=== PATIENT | male | born 1955 | race African-American/Black ===

== ENCOUNTER 2020-07-08 11:01 | Inpatient (IN) | payer MEDICARE, MEDICAID ==
[~2020-07-08] VITALS: Ht 172.7 cm; Wt 94.4 kg
[~2020-07-08 11:01] MED LIST: ACETAMINOPHEN325 M1 ORAL; CYCLOBENZAPRINE10 MG ORAL; FLEET ENEMA133 ML RECTAL; FLOMAX0.4 MG ORAL; FLONASE ALLERG9.9 ML NS; GABAPENTIN600 MG ORAL; LATANOPROST 0.7.5 ML OP; MIRALAX17 G2 ORAL; TRAMADOL HCL50 MG ORAL; VITAMIN C500 M1 ORAL; ZINC50 M1 ORAL
--- NOTE | 2020-07-08 11:09 | NUR ---
ED Nurse Note: pt was [place] [facility] [place] pressure sore started this monday. Per EMS pt's (-) for DM. Pt is AOx4m calm and cooperative to care, VSS, on RA, breathing even and unlabored. afebrile on triage.
--- NOTE | 2020-07-08 11:32 | NUR ---
ED Nurse Note: xray at bedside
[2020-07-08 11:38] VITALS: BP 111/71
[2020-07-08 11:50] LABS: ANION GAP 8 mmol/L (5-15); BLOOD UREA NITROGEN 17 mg/dL (7-18); CALCIUM 8.8 MG/DL (8.5-10.1); CARBON DIOXIDE 24 MMOL/L (21-32); CHLORIDE 104 MMOL/L (98-107); POTASSIUM 4.3 MMOL/L (3.5-5.1); SODIUM 136 MMOL/L (136-145)
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
[2020-07-08 12:23] LABS: BASOPHILS % (AUTO) 0.8 % (0.0-2.0); EOSINOPHILS % (AUTO) 2.4 % (0.0-3.0); HEMOGLOBIN 12.6 G/DL (14.2-18.0); MEAN CORPUSCULAR VOLUME 72 FL (80-99); MONOCYTES % (AUTO) 8.1 % (1.0-10.0); NEUTROPHILS % (AUTO) 65.7 % (45.0-75.0); PLATELET COUNT 407 K/UL (150-450); RED BLOOD COUNT 5.53 M/UL (4.70-6.10); RED CELL DISTRIBUTION WIDTH 13.2 % (11.6-14.8); WHITE BLOOD COUNT 7.9 K/UL (4.8-10.8)
[2020-07-08] MEDS ORDERED: Vancomycin 1 GM in NS 275 ML IVPB ONE (12:30)
[2020-07-08] MEDS ORDERED: cefTRIAXone 2 GM in NS 55 ML IVPB ONE (12:30)
--- NOTE | 2020-07-08 12:35 | Diagnostic Imaging Report ---
EXAM: X-RAY XRAY Ankle 2v R CLINICAL HISTORY: Ankle pain. Open sore. COMPARISON: None FINDINGS: Total of 2 views of the right ankle were obtained. There is diffuse osteopenia. There is a well-corticated ossific fragment inferior to the lateral malleolus likely an old injury. No acute bony lesion or erosion noted. Ankle mortise and subtalar joints grossly anatomic on these projections. There is overlying soft tissue swelling. IMPRESSION: DIFFUSE OSTEOPENIA AND APPARENT OLD INJURY OF THE LATERAL MALLEOLUS. NO DISCRETE RADIOGRAPHIC EVIDENCE OF OSTEOMYELITIS PRESENTLY.
--- NOTE | 2020-07-08 14:02 | NUR ---
ED Nurse Note: Dr Fulton at bedside
--- NOTE | 2020-07-08 14:44 | NUR ---
ED Nurse Note: Dr. Waterman, internal med physician at pt's bedside.
[2020-07-08 14:50] VITALS: BP 118/89
--- NOTE | 2020-07-08 14:50 | NUR ---
ED Nurse Note: wound culture collected
[2020-07-08] MEDS ORDERED: Albuterol/Ipratropium 3ml neb HHN PRN (15:00)
[2020-07-08] MEDS ORDERED: Miralax 17gm pkt ORAL PRN (15:00)
[2020-07-08] MEDS ORDERED: Mylanta II UD 30ml ORAL PRN (15:00)
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
[2020-07-08] MEDS ORDERED: HYDROcodone/Acetamin 10/325 tab ORAL PRN (15:45)
[2020-07-08] MEDS ORDERED: HYDROcodone/Acetamin 5/325 tab ORAL PRN (15:45)
--- NOTE | 2020-07-08 17:20 | NUR ---
ED Nurse Note: Report was given to Dustin HINSON in Telemetry Unit. Pt was transferredon stable condition; all belonginsgwas sent with pt.
--- NOTE | 2020-07-08 17:25 | Infectious Diseases Prog Note ---
Assessment/Plan Assessment/Plan Full consult dictated: A) 1) right ankle infected wound with cellulitis, ? osteomyelitis 2) pmh noted 3) allergies - nkda P) 1) vancomycin and cefepime 2) check wound culture 3) monitor labs 4) f/u on CT ankle 5) thank you Subjective Allergies: Coded Allergies: No Known Allergies (Unverified , 05/25/20) Objective Last 24 Hour Vital Signs Date Time Temp Pulse Resp B/P (MAP) Pulse Ox O2 Delivery O2 Flow Rate FiO2 07/08/20 11:38 98.2 19 111/71 94 Room Air 07/08/20 11:02 98.2 84 19 111/71 (84) 94 Room Air Height (Feet): 5 Height (Inches): 8.00 Weight (Pounds): 192 Microbiology Date/Time Source Procedure Growth Status 07/08/20 14:30 Rectum Received 07/08/20 14:23 Nasopharynx SARS-CoV-2 RdRp Gene Assay - Final Complete Laboratory Tests Test 07/08/20 11:25 07/08/20 11:50 Erythrocyte Sedimentation Rate 8 MM/HR (0-20) Sodium Level 136 MMOL/L (136-145) Potassium Level 4.3 MMOL/L (3.5-5.1) Chloride Level 104 MMOL/L (98-107) Carbon Dioxide Level 24 MMOL/L (21-32) Anion Gap 8 mmol/L (5-15) Blood Urea Nitrogen 17 mg/dL (7-18) Creatinine 1.0 MG/DL (0.55-1.30) Estimat Glomerular Filtration Rate > 60 mL/min (>60) Glucose Level 106 MG/DL (74-106) Calcium Level 8.8 MG/DL (8.5-10.1) C-Reactive Protein, Quantitative 3.8 mg/dL (0.00-0.90) H White Blood Count 7.9 K/UL (4.8-10.8) Red Blood Count 5.53 M/UL (4.70-6.10) Hemoglobin 12.6 G/DL (14.2-18.0) L Hematocrit 40.0 % (42.0-52.0) L Mean Corpuscular Volume 72 FL (80-99) L Mean Corpuscular Hemoglobin 22.8 PG (27.0-31.0) L Mean Corpuscular Hemoglobin Concent 31.5 G/DL (32.0-36.0) L Red Cell Distribution Width 13.2 % (11.6-14.8) Platelet Count 407 K/UL (150-450) Mean Platelet Volume 5.9 FL (6.5-10.1) L Neutrophils (%) (Auto) 65.7 % (45.0-75.0) Lymphocytes (%) (Auto) 23.0 % (20.0-45.0) Monocytes (%) (Auto) 8.1 % (1.0-10.0) Eosinophils (%) (Auto) 2.4 % (0.0-3.0) Basophils (%) (Auto) 0.8 % (0.0-2.0) Current Medications Medications (Trade) Dose Ordered Sig/Hector Route PRN Reason Start Time Stop Time Status Last Admin Dose Admin Acetaminophen (Tylenol) 650 mg Q4H PRN ORAL Mild Pain (Pain Scale 1-3) 07/08/20 15:00 08/07/20 14:59 Acetaminophen/ Hydrocodone Bitart (Moore 10/325) 1 tab Q4H PRN ORAL Severe Pain (Pain Scale 7-10) 07/08/20 15:45 07/15/20 15:44 Acetaminophen/ Hydrocodone Bitart (Moore 5/325) 1 tab Q4H PRN ORAL Moderate Pain (Pain Scale 4-6) 07/08/20 15:45 07/15/20 15:44 Al Hydroxide/Mg Hydroxide (Mylanta II) 30 ml Q6H PRN ORAL dyspepsia 07/08/20 15:00 08/07/20 14:59 Albuterol/ Ipratropium (Albuterol/ Ipratropium) 3 ml Q4H PRN HHN Shortness of Breath 07/08/20 15:00 07/13/20 14:59 Ceftriaxone Sodium 1 gm/ Sodium Chloride 55 ml @ 110 mls/hr DAILY IVPB 07/09/20 09:00 07/16/20 08:59 Cyclobenzaprine HCl (Flexeril) 10 mg THREE TIMES A DAY ORAL 07/08/20 18:00 07/15/20 17:59 Dextrose (Dextrose 50%) 25 ml Q30M PRN IV Hypoglycemia 07/08/20 15:00 10/06/20 14:59 Dextrose (Dextrose 50%) 50 ml Q30M PRN IV Hypoglycemia 07/08/20 15:00 10/06/20 14:59 Enoxaparin Sodium (Lovenox) 40 mg Q24H SUBQ 07/08/20 18:00 10/06/20 17:59 Gabapentin (Neurontin) 600 mg THREE TIMES A DAY ORAL 07/08/20 18:00 08/07/20 17:59 Ondansetron HCl (Zofran) 4 mg Q6H PRN IVP Nausea & Vomiting 07/08/20 15:00 08/07/20 14:59 Polyethylene Glycol (Miralax) 17 gm HSPRN PRN ORAL Constipation 07/08/20 15:00 08/07/20 14:59 Sodium Chloride 1,000 ml @ 100 mls/hr Q10H IVLG 07/08/20 18:00 08/07/20 17:59 Vancomycin HCl (Vanco pharmacy to dose) 1 ea DAILY PRN MISC Per rx protocol 07/08/20 15:15 08/07/20 15:14 Juan Hubbard MD Jul 08, 2020 17:25
--- NOTE | 2020-07-08 17:30 | NUR ---
NURSE NOTES: received patient report from jennifer villa from ER. patient came in via gurney.patient is here for R ankle wound infection. wound swab was sent for cx. under the care of dr goel. athletic monitor initiated. vs taken and recorded. wound assessment done. wound seen by dr agrawal in ER. belongings checked and signed. will follow plan of care.
[2020-07-08 17:37] VITALS: BP 127/80
[2020-07-08] MEDS: Cyclobenzaprine 10mg Tab ORAL SCH (18:33)
[2020-07-08] MEDS: Enoxaparin 40mg Inj SUBQ SCH (18:34)
--- NOTE | 2020-07-08 19:01 | General Progress Note ---
Advance Care Planning Advance Care Planning Advance Care Planning [facility] An independent Hospitalist group, where every patient is our [facility] Internal Medicine Hospitalist Advanced Care Planning Note Please contact us at Date of Discussion: A [id number] discussion with the patient regarding the patient's advanced care planning took place during this hospitalization on the above date. The discussion included the explanation and discussion of advance directives and associated forms/documents, as well as the patient's current code status. We also discussed at length the patient's medical conditions (both acute and chroni c), general prognosis, treatment options, and goals of care. The following summarizes the discussion: Advance Care Planning/Goals of Care: - Will attempt to fill out an AD and/or POLST with the patient prior to discharge, if not already completed - Continue current evaluation and management of any acute and chronic medical issues - Will continue to support the patient/family - Will continue to discuss both short- and long-term goals of care DPOA-HC/Surrogate Decision Maker: None currently appointed Code Status: DNI; ok with CPR and pressor support Advanced Care Planning Forms/Documents Completed: Deferred until later encounter/visit A total of 19 minutes was spent on this discussion, including counseling, answering questions, and completing, if any, pertinent advanced care planning forms/documents. Time of note may not reflect time of encounter. Miguelangel Waterman D.O Jul 08, 2020 19:01
--- NOTE | 2020-07-08 19:22 | NUR ---
NURSE HAND-OFF REPORT: Important Events on Shift:admitted to the floor Patient Status: dni Diet: regular Pending Orders: [] Pending Results/Labs:[] Pending MD notification:[] Latest Vital Signs: Temperature 96.4 , Pulse 92 , B/P 127 /80 , Respiratory Rate 20 , O2 SAT 96 , Room Air, O2 Flow Rate . Vital Sign Comment: stable EKG Rhythm: Sinus Rhythm Rhythm change?: MD Notified?: - MD Response: Latest Liu Fall Score: 55 Fall Risk: High Risk Safety Measures: Call light Within Reach, Bed Alarm Zone 2, Side Rails Side Rails x2, Bed position Low and Locked. Fall Precautions: Yellow Socks Report given to beatrice villa.
--- NOTE | 2020-07-08 19:35 | NUR ---
NURSE NOTES: Received patient from JOYA Longoria. Patient AAOx4, able to make needs known. On room air, saturating well. Breathing unlabored and even. IV site on RH #22g, running NS at 100ml/hr. IV site flushed and asymptomatic. with complaints of minimal pain but no necessitating pain medication at this time, per patient. No signs of acute distress or shortness of breath. Noted to have right ankle infection. Bed in lowest position, brakes engaged and bed alarm on. Bed rails raised x2. Will continue to monitor.
[2020-07-08 20:00] VITALS: BP 119/77
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
[2020-07-09] VITALS: BP 115/78
--- NOTE | 2020-07-09 02:36 | NUR ---
NURSE NOTES: pt seen asleep and resting in bed. no complaints of pain or discomfort at this time. ivf running at a prescribed rate. bed in lowest position, brakes engaged and bed alarm on. call light placed within reach. will continue to monitor.
[2020-07-09 04:00] VITALS: BP 112/60
[2020-07-09 06:28] LABS: BASOPHILS % (AUTO) 0.5 % (0.0-2.0); EOSINOPHILS % (AUTO) 2.8 % (0.0-3.0); HEMATOCRIT 40.3 % (42.0-52.0); HEMOGLOBIN 12.8 G/DL (14.2-18.0); LYMPHOCYTES % (AUTO) 25.1 % (20.0-45.0); MEAN CORPUSCULAR VOLUME 71 FL (80-99); MONOCYTES % (AUTO) 6.4 % (1.0-10.0); NEUTROPHILS % (AUTO) 65.1 % (45.0-75.0); PLATELET COUNT 427 K/UL (150-450); RED BLOOD COUNT 5.66 M/UL (4.70-6.10); RED CELL DISTRIBUTION WIDTH 13.4 % (11.6-14.8); WHITE BLOOD COUNT 8.4 K/UL (4.8-10.8)
[2020-07-09 06:45] LABS: ANION GAP 8 mmol/L (5-15); BLOOD UREA NITROGEN 13 mg/dL (7-18); CALCIUM 8.4 MG/DL (8.5-10.1); CARBON DIOXIDE 24 MMOL/L (21-32); CHLORIDE 106 MMOL/L (98-107); POTASSIUM 3.6 MMOL/L (3.5-5.1); SODIUM 138 MMOL/L (136-145)
[2020-07-09 07:00] LABS: % IRON SATURATION 17 % (15-50); ALANINE AMINOTRANSFERASE 16 U/L (12-78); ALBUMIN 2.7 G/DL (3.4-5.0); ALBUMIN/GLOBULIN RATIO 0.8 (1.0-2.7); ALKALINE PHOSPHATASE 176 U/L (46-116); ASPARTATE AMINO TRANSFERASE 14 U/L (15-37); BILIRUBIN,TOTAL 0.1 MG/DL (0.2-1.0); CHOLESTEROL 167 MG/DL (< 200); FERRITIN 281 NG/ML (8-388); HDL CHOLESTEROL 29 MG/DL (40-60); IRON 36 ug/dL (50-175); TOTAL IRON BINDING CAPACITY 207 ug/dL (250-450); TRIGLYCERIDES 167 MG/DL (30-150)
--- NOTE | 2020-07-09 07:30 | NUR ---
NURSE NOTES: Received patient in bed. Awake, A/O x4. On room air, respirations unlabored. Patietn denies pain at this time. Heart monitor in place. IV in the Right hand, site infusing IVf as ordered. Patient is a high fall risk d/t Liu fall score of 55. Patient placed close to the nurse's station for safety and close monitoring. Yellow gown on, yellow socks on, bed alarm in high sensitivity, side rails up x2, bed at the lowest position, call light within reach with return demonstration. Cn and [employer] made aware.
--- NOTE | 2020-07-09 07:36 | NUR ---
NURSE HAND-OFF REPORT: Important Events on Shift:[New admit.] Patient Status: [FC] Diet: [Regular diet] Pending Orders: [na] Pending Results/Labs:[na] Pending MD notification:[na] Latest Vital Signs: Temperature 98.4 , Pulse 87 , B/P 112 /60 , Respiratory Rate 18 , O2 SAT 95 , Room Air, O2 Flow Rate . Vital Sign Comment: [] EKG Rhythm: Sinus Rhythm Rhythm change?: N MD Notified?: - MD Response: Latest Liu Fall Score: 55 Fall Risk: High Risk Safety Measures: Call light Within Reach, Bed Alarm Zone 1, Side Rails Side Rails x2, Bed position Low and Locked. Fall Precautions: Yellow Socks Yellow Gown Door Sign Patient Fall Education Report given to [JOYA Alfonso].
[2020-07-09 08:00] VITALS: BP 109/72
[2020-07-09] MEDS ORDERED: cefTRIAXone 1 GM in NS 55 ML IVPB SCH (09:00)
[2020-07-09] MEDS: Cyclobenzaprine 10mg Tab ORAL SCH ×3 (09:12→18:01)
--- NOTE | 2020-07-09 09:58 | NUR ---
NURSE NOTES: Called and left message to Dr. Dong office for blood culture result.
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
[2020-07-09 12:00] VITALS: BP 126/75
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
--- NOTE | 2020-07-09 14:35 | NUR ---
HAND-OFF: Report given to Kishor HINSON. To room 410-2. Patient awake, A/O x4. On room air, respirations unlabored. Patient denies pain. Heart monitor removed. Belongings list verified.
--- NOTE | 2020-07-09 15:18 | Diagnostic Imaging Report ---
Indication: Ankle pain, concern for osteomyelitis. Technique: CT lower extremity was performed utilizing automated exposure control without intravenous contrast material. Axial and coronal images were generated. CT dose: Total DLP 116 mGycm; CTDI vol 2.3 mGy Comparison: Ankle radiograph dated 07/08/2020 Findings: Osseous structures: Bones are diffusely demineralized. No acute fracture or dislocation. There is cortical discontinuity and medullary erosion of the distal fibula (9:63). Talar dome is unremarkable. There is diffuse irregular sclerosis of the tarsal bones, talus, and calcaneus, which may be related to renal osteodystrophy. There is mild to moderate multifocal intertarsal joint and tibiotalar joint, and subtalar joint osteoarthrosis characterized by subchondral sclerosis and cystic changes as well as marginal osteophyte formation. Soft tissues: There is epidermal irregularity and discontinuity overlying the distal fibula with subjacent soft tissue thickening and inflammatory changes. There is mild anasarca. No drainable fluid collection. Impression: Lateral malleolus skin ulceration and associated cellulitis with underlying cortical erosion of the distal fibula suggestive of acute osteomyelitis. The CT scanner at [facility] is accredited by the [employer] and the scans are performed using protocols designed to limit radiation exposure to as low as reasonably achievable to attain images of sufficient resolution adequate for diagnostic evaluation.
[2020-07-09 16:00] VITALS: BP 103/58
--- NOTE | 2020-07-09 17:35 | NUR ---
NURSE NOTES: Received report from JOYA Alfonso. Received patient in bed. Awake, A/O x4. On room air, respirations unlabored. Patient denies pain at this time. Skin issue noted and Rn took picture and uploaded as well as changed dressings. Breathing is even and unlabored with no signs of respiratory distress noted at this time IV in the Right hand, site infusing IVf as ordered. patient is paraplegic from waist down, high fall risk. Yellow gown on, yellow socks on, bed alarm in high sensitivity, side rails up x2, bed at the lowest position, call light within reach with return demonstration.
[2020-07-09] MEDS: Enoxaparin 40mg Inj SUBQ SCH (18:01)
--- NOTE | 2020-07-09 18:49 | Consultation ---
History of Present Illness General Date patient seen: Jul 09, 2020 Reason for Hospitalization: Wound Recheck/Suture Removal Present Illness HPI 64M with right foot cellulitis and open wound ulcer lateral. prior injury with slow healing. recently noted worsening edema and cellulitis with drainage. admitted for care and management. on iv abx. surgery called to evaluate and assist with care. Allergies: Coded Allergies: No Known Allergies (Unverified , 05/25/20) COVID-19 Screening Contact w/high risk pt: No Experienced COVID-19 symptoms?: No Medication History Scheduled Ascorbic Acid* (Vitamin C*), 500 MG ORAL DAILY, (Reported) Cyclobenzaprine Hcl* (Flexeril*), 10 MG ORAL THREE TIMES A DAY, (Reported) Gabapentin* (Gabapentin*), 600 MG ORAL THREE TIMES A DAY, (Reported) Polyethylene Glycol 3350* (Miralax*), 17 GM ORAL DAILY Tamsulosin HCl (Flomax), 0.4 MG ORAL DAILY, (Reported) Tramadol Hcl* (Ultram*), 50 MG ORAL BID, (Reported) Scheduled PRN Acetaminophen* (Acetaminophen 325MG Tablet*), 650 MG ORAL Q4H PRN for Pain Scale (3-5), (Reported) Na Phos,M-B/Na Phos,Di-Ba* (Fleet Enema*), 133 ML RECTAL DAILY PRN for Constipation Miscellaneous Medications Fluticasone Propionate (Flonase Allergy Relief), 9.9 ML NS, (Reported) Latanoprost/Pf (Latanoprost 0.005% Eye Drop), 7.5 ML OP, (Reported) Zinc (Zinc), 50 MG ORAL, (Reported) Patient History History Provided By: Patient, Medical Record, PMD Healthcare decision maker Resuscitation status Advanced Directive on File Past Medical/Surgical History Past Medical/Surgical History: (1) Constipation (2) Fecal impaction (3) Cellulitis (4) Infection Review of Systems Review of Symptoms General ROS: no weight loss or fever Psychological ROS: no depression or mood changes, no memory loss Ophthalmic ROS: no visual changes or eye irritation ENT ROS: no nasal congestion, hearing loss, dizziness Allergy and Immunology ROS: no allergic symptoms or urticaria Hematological and Lymphatic ROS: no swollen glands, unusual bleeding or bruising Endocrine ROS: no polyuria, polydipsia, weight changes, temperature intolerance Respiratory ROS: no cough, shortness of breath, or wheezing Cardiovascular ROS: no chest pain or dyspnea on exertion Gastrointestinal ROS: denies abdominal pain, bright red blood in stool. Musculoskeletal ROS: no myalgias or arthralgias Neurological ROS: no TIA or stroke symptoms Dermatological ROS: no new or changing skin lesions, rashes or pruritis Physical Exam Physical Exam General appearance: alert, cooperative, no distress, appears stated age Head: Normocephalic, without obvious abnormality, atraumatic Eyes: conjunctivae/corneas clear. PERRL, EOM's intact. Fundi benign Throat: Lips, mucosa, and tongue normal. Teeth and gums normal Neck: supple, symmetrical, trachea midline, no adenopathy, thyroid: not enlarged, symmetric, no tenderness/mass/nodules, no carotid bruit and no JVD Lungs: clear to auscultation bilaterally Heart: regular rate and rhythm, S1, S2 normal, no murmur, click, rub or gallop Abdomen: soft, non-tender. Bowel sounds normal. No masses, no organomegaly Extremities: extremities see below Pulses: 2+ and symmetric Skin: Skin color, texture, turgor normal. No rashes or lesions Neurologic: Grossly normal Last 24 Hour Vital Signs Date Time Temp Pulse Resp B/P (MAP) Pulse Ox O2 Delivery O2 Flow Rate FiO2 07/09/20 16:00 87 07/09/20 16:00 98.1 81 20 103/58 (73) 96 07/09/20 12:00 95 07/09/20 12:00 96.7 90 19 126/75 (92) 98 07/09/20 09:00 Room Air 07/09/20 08:00 87 07/09/20 08:00 98.1 92 20 109/72 (84) 96 07/09/20 04:00 98.4 87 18 112/60 (77) 95 07/09/20 04:00 91 07/09/20 00:00 97.1 95 20 115/78 (90) 97 07/09/20 00:00 87 07/08/20 21:00 Room Air 07/08/20 20:00 92 07/08/20 20:00 96.6 91 20 119/77 (91) 95 Intake and Output 07/08/20 07/09/20 19:00 07:00 Intake Total 46.4 ml 1750.000 ml Balance 46.4 ml 1750.000 ml Intake Oral 0 ml 120 ml IV Total 46.4 ml 1630.000 ml # Voids 1 1 # Bowel Movements 1 1 Laboratory Tests Test 07/09/20 04:47 White Blood Count 8.4 K/UL (4.8-10.8) Red Blood Count 5.66 M/UL (4.70-6.10) Hemoglobin 12.8 G/DL (14.2-18.0) L Hematocrit 40.3 % (42.0-52.0) L Mean Corpuscular Volume 71 FL (80-99) L Mean Corpuscular Hemoglobin 22.6 PG (27.0-31.0) L Mean Corpuscular Hemoglobin Concent 31.7 G/DL (32.0-36.0) L Red Cell Distribution Width 13.4 % (11.6-14.8) Platelet Count 427 K/UL (150-450) Mean Platelet Volume 6.5 FL (6.5-10.1) Neutrophils (%) (Auto) 65.1 % (45.0-75.0) Lymphocytes (%) (Auto) 25.1 % (20.0-45.0) Monocytes (%) (Auto) 6.4 % (1.0-10.0) Eosinophils (%) (Auto) 2.8 % (0.0-3.0) Basophils (%) (Auto) 0.5 % (0.0-2.0) Sodium Level 138 MMOL/L (136-145) Potassium Level 3.6 MMOL/L (3.5-5.1) Chloride Level 106 MMOL/L (98-107) Carbon Dioxide Level 24 MMOL/L (21-32) Anion Gap 8 mmol/L (5-15) Blood Urea Nitrogen 13 mg/dL (7-18) Creatinine 1.0 MG/DL (0.55-1.30) Estimat Glomerular Filtration Rate > 60 mL/min (>60) Glucose Level 99 MG/DL (74-106) Hemoglobin A1c 6.3 % (4.3-6.0) H Calcium Level 8.4 MG/DL (8.5-10.1) L Iron Level 36 ug/dL (50-175) L Total Iron Binding Capacity 207 ug/dL (250-450) L Percent Iron Saturation 17 % (15-50) Unsaturated Iron Binding 171 ug/dL (112-346) Ferritin 281 NG/ML (8-388) Total Bilirubin 0.1 MG/DL (0.2-1.0) L Aspartate Amino Transf (AST/SGOT) 14 U/L (15-37) L Alanine Aminotransferase (ALT/SGPT) 16 U/L (12-78) Alkaline Phosphatase 176 U/L (46-116) H C-Reactive Protein, Quantitative 3.8 mg/dL (0.00-0.90) H Total Protein 6.3 G/DL (6.4-8.2) L Albumin 2.7 G/DL (3.4-5.0) L Globulin 3.6 g/dL Albumin/Globulin Ratio 0.8 (1.0-2.7) L Triglycerides Level 167 MG/DL (30-150) H Cholesterol Level 167 MG/DL (< 200) LDL Cholesterol 106 mg/dL (<100) H HDL Cholesterol 29 MG/DL (40-60) L Cholesterol/HDL Ratio 5.8 (3.3-4.4) H Height (Feet): 5 Height (Inches): 8.00 Weight (Pounds): 192 Medications Current Medications Medications (Trade) Dose Ordered Sig/Hector Route PRN Reason Start Time Stop Time Status Last Admin Dose Admin Acetaminophen (Tylenol) 650 mg Q4H PRN ORAL Mild Pain (Pain Scale 1-3) 07/08/20 15:00 08/07/20 14:59 07/08/20 18:43 Acetaminophen/ Hydrocodone Bitart (Brilliant 10/325) 1 tab Q4H PRN ORAL Severe Pain (Pain Scale 7-10) 07/08/20 15:45 07/15/20 15:44 Acetaminophen/ Hydrocodone Bitart (Brilliant 5/325) 1 tab Q4H PRN ORAL Moderate Pain (Pain Scale 4-6) 07/08/20 15:45 07/15/20 15:44 Al Hydroxide/Mg Hydroxide (Mylanta II) 30 ml Q6H PRN ORAL dyspepsia 07/08/20 15:00 08/07/20 14:59 Albuterol/ Ipratropium (Albuterol/ Ipratropium) 3 ml Q4H PRN HHN Shortness of Breath 07/08/20 15:00 07/13/20 14:59 Cefepime HCl 2 gm/ Dextrose 100 ml @ 200 mls/hr Q12HR IVPB 07/08/20 21:00 07/15/20 20:59 07/09/20 09:12 Cyclobenzaprine HCl (Flexeril) 10 mg THREE TIMES A DAY ORAL 07/08/20 18:00 07/15/20 17:59 07/09/20 18:01 Dextrose (Dextrose 50%) 25 ml Q30M PRN IV Hypoglycemia 07/08/20 15:00 10/06/20 14:59 Dextrose (Dextrose 50%) 50 ml Q30M PRN IV Hypoglycemia 07/08/20 15:00 10/06/20 14:59 Enoxaparin Sodium (Lovenox) 40 mg Q24H SUBQ 07/08/20 18:00 10/06/20 17:59 07/09/20 18:01 Gabapentin (Neurontin) 600 mg THREE TIMES A DAY ORAL 07/08/20 18:00 08/07/20 17:59 07/09/20 18:01 Ondansetron HCl (Zofran) 4 mg Q6H PRN IVP Nausea & Vomiting 07/08/20 15:00 08/07/20 14:59 Polyethylene Glycol (Miralax) 17 gm HSPRN PRN ORAL Constipation 07/08/20 15:00 08/07/20 14:59 Sodium Chloride 1,000 ml @ 75 mls/hr [id number] IVLG 07/08/20 18:00 07/10/20 04:29 07/09/20 15:13 Vancomycin HCl (Vanco pharmacy to dose) 1 ea DAILY PRN MISC Per rx protocol 07/08/20 15:15 08/07/20 15:14 Vancomycin HCl 1 gm/Sodium Chloride 250 ml @ 167.007 mls/hr Q12HR@0100,1300 IVPB 07/09/20 01:00 07/14/20 00:59 07/09/20 12:25 Assessment/Plan Problem List: (1) Cellulitis Assessment & Plan: cont abx local care initiated keep legs elevated heel protectors cont iv abx no abscess noted on exam thank you will follow with recs Osseous structures: Bones are diffusely demineralized. No acute fracture or dislocation. There is cortical discontinuity and medullary erosion of the distal fibula (9:63). Talar dome is unremarkable. There is diffuse irregular sclerosis of the tarsal bones, talus, and calcaneus, which may be related to renal osteodystrophy. There is mild to moderate multifocal intertarsal joint and tibiotalar joint, and subtalar joint os teoarthrosis characterized by subchondral sclerosis and cystic changes as well as marginal osteophyte formation. Soft tissues: There is epidermal irregularity and discontinuity overlying the distal fibula with subjacent soft tissue thickening and inflammatory changes. There is mild anasarca. No drainable fluid collection. Impression: Lateral malleolus skin ulceration and associated cellulitis with underlying cortical erosion of the distal fibula suggestive of acute osteomyelitis. ICD Codes: L03.90 - Cellulitis, unspecified SNOMED: 454843682 (2) Constipation ICD Codes: K59.00 - Constipation, unspecified SNOMED: 21963615 (3) Fecal impaction ICD Codes: K56.41 - Fecal impaction SNOMED: 49489471 (4) Infection ICD Codes: B99.9 - Infection SNOMED: 26115270 Luis Fulton Jul 09, 2020 18:49
--- NOTE | 2020-07-09 19:32 | NUR ---
NURSE HAND-OFF: Important Events on Shift: transfer, wound care and pictures Patient Status: stable Diet: regular Pending Orders: n/a Pending Results/Labs:n/a Pending MD notification:n/a Latest Vital Signs: Temperature 98.1 , Pulse 87 , B/P 103 /58 , Respiratory Rate 20 , O2 SAT 96 , Room Air, O2 Flow Rate . Vital Sign Comment: stable Latest Liu Fall Score: 55 Fall Risk: High Risk Safety Measures: Call light Within Reach, Bed Alarm Zone 1, Side Rails Side Rails x2, Bed position Low and Locked. Fall Precautions: Yellow Socks Yellow Gown Door Sign Patient Fall Education Report given to JOYA Up.
--- NOTE | 2020-07-09 19:40 | NUR ---
NURSE NOTES: Received report from Kishor RN.The patient is alert and oriented x4, cooperative with his care and does not seem to be in any distress at this time. The Resp is even and unlabored and the bilateral lung sounds are clear on auscultation.The patient has a Right hand 22g that is patent and asymptomatic.On skin assessment, the is a Right lateral malleolus sore that is covered with clean dressing, no bleeding noted. patient is paraplegic from waist down, high fall risk. Yellow gown on, yellow socks on, bed alarm in high sensitivity, side rails up x2, bed at the lowest position, call light within reach.Will continue to monitor
[2020-07-09 20:00] VITALS: BP 119/64
[2020-07-10] VITALS: BP 133/79
--- NOTE | 2020-07-10 02:30 | NUR ---
NURSE NOTES The patient is alert and stable and was able to sleep for about 8 hrs last night.He received his antibiotics as indicated well tolerated.The Resp is even and unlabored and the bilateral lungs sound clear on auscultation. Will continue to monitor
[2020-07-10] MEDS: Vancomycin 1.5gm/NS Premix IVPB SCH ×2 (02:59→13:20)
[2020-07-10 04:00] VITALS: BP 124/76
[2020-07-10 06:55] LABS: BASOPHILS % (AUTO) 0.5 % (0.0-2.0); EOSINOPHILS % (AUTO) 2.5 % (0.0-3.0); HEMATOCRIT 42.5 % (42.0-52.0); HEMOGLOBIN 12.7 G/DL (14.2-18.0); LYMPHOCYTES % (AUTO) 29.7 % (20.0-45.0); MEAN CORPUSCULAR VOLUME 73 FL (80-99); MONOCYTES % (AUTO) 7.8 % (1.0-10.0); NEUTROPHILS % (AUTO) 59.5 % (45.0-75.0); PLATELET COUNT 438 K/UL (150-450); RED BLOOD COUNT 5.79 M/UL (4.70-6.10); RED CELL DISTRIBUTION WIDTH 13.1 % (11.6-14.8); WHITE BLOOD COUNT 7.5 K/UL (4.8-10.8)
[2020-07-10 07:06] LABS: ANION GAP 9 mmol/L (5-15); BLOOD UREA NITROGEN 12 mg/dL (7-18); CALCIUM 8.6 MG/DL (8.5-10.1); CARBON DIOXIDE 25 MMOL/L (21-32); CHLORIDE 108 MMOL/L (98-107); CREATININE 1.1 MG/DL (0.55-1.30); POTASSIUM 4.3 MMOL/L (3.5-5.1); SODIUM 142 MMOL/L (136-145)
--- NOTE | 2020-07-10 07:38 | NUR ---
HAND-OFF: Report given to Lizzie HINSON.
[2020-07-10 08:00] VITALS: BP 126/76
--- NOTE | 2020-07-10 08:11 | NUR ---
NURSE NOTES: Report received from JOYA Up. Patient awake in bed, alert and oriented x 4, no SOB, bed in lowest position with breaks engaged and alarm on, denies any pain at this time, IV line intact on right hand, on room air, will continue to monitor and proceed with plan of care, call light within reach.
[2020-07-10] MEDS: Cyclobenzaprine 10mg Tab ORAL SCH ×3 (09:20→17:14)
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
--- NOTE | 2020-07-10 11:54 | Surgery Progress Note ---
Surgery Progress Note Subjective Additional Comments doing well esr and crp nml exam stable cellulitis improving unlikely osteo cont abx cont local care Objective Last 24 Hour Vital Signs Date Time Temp Pulse Resp B/P (MAP) Pulse Ox O2 Delivery O2 Flow Rate FiO2 07/10/20 10:04 98.1 07/10/20 09:00 Room Air 07/10/20 08:00 98.1 88 18 126/76 (93) 94 07/10/20 07:00 88 18 94 Room Air 21 07/10/20 04:00 98.4 92 18 124/76 (92) 97 07/10/20 00:00 97.5 81 18 133/79 (97) 95 07/09/20 21:00 Room Air 07/09/20 20:00 97.8 88 18 119/64 (82) 94 07/09/20 16:00 87 07/09/20 16:00 98.1 81 20 103/58 (73) 96 07/09/20 12:00 95 07/09/20 12:00 96.7 90 19 126/75 (92) 98 I&O Intake and Output 07/09/20 07/10/20 19:00 07:00 Intake Total 1000 ml 210 ml Output Total 200 ml 1800 ml Balance 800 ml -1590 ml Intake Oral 300 ml 210 ml IV Total 700 ml Output Urine Total 200 ml 1800 ml Dressing: saturated Cardiovascular: RSR Respiratory: clear Abdomen: soft, non-tender, non-distended Extremities: edema, no tenderness, no cyanosis Laboratory Tests Test 07/10/20 00:23 07/10/20 04:00 Vancomycin Level Trough 13.1 ug/mL (5.0-12.0) H White Blood Count 7.5 K/UL (4.8-10.8) Red Blood Count 5.79 M/UL (4.70-6.10) Hemoglobin 12.7 G/DL (14.2-18.0) L Hematocrit 42.5 % (42.0-52.0) Mean Corpuscular Volume 73 FL (80-99) L Mean Corpuscular Hemoglobin 22.0 PG (27.0-31.0) L Mean Corpuscular Hemoglobin Concent 30.0 G/DL (32.0-36.0) L Red Cell Distribution Width 13.1 % (11.6-14.8) Platelet Count 438 K/UL (150-450) Mean Platelet Volume 5.4 FL (6.5-10.1) L Neutrophils (%) (Auto) 59.5 % (45.0-75.0) Lymphocytes (%) (Auto) 29.7 % (20.0-45.0) Monocytes (%) (Auto) 7.8 % (1.0-10.0) Eosinophils (%) (Auto) 2.5 % (0.0-3.0) Basophils (%) (Auto) 0.5 % (0.0-2.0) Sodium Level 142 MMOL/L (136-145) Potassium Level 4.3 MMOL/L (3.5-5.1) Chloride Level 108 MMOL/L (98-107) H Carbon Dioxide Level 25 MMOL/L (21-32) Anion Gap 9 mmol/L (5-15) Blood Urea Nitrogen 12 mg/dL (7-18) Creatinine 1.1 MG/DL (0.55-1.30) Estimat Glomerular Filtration Rate > 60 mL/min (>60) Glucose Level 55 MG/DL (74-106) L Calcium Level 8.6 MG/DL (8.5-10.1) Phosphorus Level 3.0 MG/DL (2.5-4.9) Magnesium Level 2.2 MG/DL (1.8-2.4) Plan Problems: (1) Cellulitis Assessment & Plan: cont abx local care initiated keep legs elevated heel protectors cont iv abx no abscess noted on exam thank you will follow with recs Osseous structures: Bones are diffusely demineralized. No acute fracture or dislocation. There is cortical discontinuity and medullary erosion of the distal fibula (9:63). Talar dome is unremarkable. There is diffuse irregular sclerosis of the tarsal bones, talus, and calcaneus, which may be related to renal osteodystrophy. There is mild to moderate multifocal intertarsal joint and tibiotalar joint, and subtalar joint osteoarthrosis characterized by subchondral sclerosis and cystic changes as well as marginal osteophyte formation. Soft tissues: There is epidermal irregularity and discontinuity overlying the distal fibula with subjacent soft tissue thickening and inflammatory changes. There is mild anasarca. No drainable fluid collection. Impression: Lateral malleolus skin ulceration and associated cellulitis with underlying cortical erosion of the distal fibula suggestive of acute osteomyelitis. (2) Constipation (3) Fecal impaction (4) Infection Luis Fulton Jul 10, 2020 11:54
[2020-07-10 12:00] VITALS: BP 112/60
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
[2020-07-10 16:00] VITALS: BP 112/58
--- NOTE | 2020-07-10 16:26 | NUR ---
CASE MANAGEMENT:REVIEW SI;RLE CELLULITIS W/POSSIBLE OSTEOMYELITIS 98.4 88 20 126/76 94% ON RA CL 108 BG 55 IS;VANCOMYCIN IV Q8 GABAPENTIN PO TID FLEXERIL PO TID CEFEPIME IV Q12 MED SURG STATUS DCP;FROM HOME PLAN; SNF PLACEMENT
--- NOTE | 2020-07-10 16:55 | NUR ---
*-*DISCHARGE PLANNING*-* PATIENT HAS BEEN ACCEPTED BACK TO: [facility] P: [phone] ROOM# 10.A
[2020-07-10] MEDS: Enoxaparin 40mg Inj SUBQ SCH (17:15)
--- NOTE | 2020-07-10 17:18 | Diagnostic Imaging Report ---
EXAM: MR Right Lower Extremity Without Intravenous Contrast, Ankle CLINICAL HISTORY: Osteomyelitis TECHNIQUE: Multiplanar magnetic resonance images of the right ankle without intravenous contrast. COMPARISON: Radiographs of 07/08/[address] of 07/09/20 FINDINGS: As noted on CT, there is erosion of the inferolateral cortex of the distal right fibula/lateral malleolus. Extensive bone marrow edema involving the malleolus extending to the distal fibular shaft. While examination is limited without intravenous contrast, findings are concerning for osteomyelitis. Chronic avulsion injury noted with osseous fragment at the tip of the lateral malleolus. No acute fracture. IMPRESSION: Findings suggesting osteomyelitis of the distal right fibula/lateral malleolus.
--- NOTE | 2020-07-10 19:25 | NUR ---
NURSE NOTES: RECEIVED PATIENT FROM JOYA BERGMAN. PATIENT IS AWAKE, AAOX4, ON ROOM AIR, NO ACUTE DISTRESS NOTED. DENIES SOB, DENIES CHEST PAIN. PIV ON LEFT HAND INTACT AND PATENT. WOUND DRESSINGS INTACT AND DRY. CONDOM CATH IN PLACE, DRAINING WELL. BED IS LOCKED AND LOW, BED ALARMS ACTIVE, SIDE RAILS UPX2 AND CALL LIGHT IS WITHIN REACH, WILL CONTINUE TO MONITOR.
--- NOTE | 2020-07-10 19:34 | NUR ---
NURSE HAND-OFF: Important Events on Shift:[wound care, IV ATB, safety and comfort] Patient Status: [stable] Diet: [regular] Pending Orders: [] Pending Results/Labs:[] Pending MD notification:[] Latest Vital Signs: Temperature 98.1 , Pulse 81 , B/P 112 /58 , Respiratory Rate 20 , O2 SAT 96 , Room Air, O2 Flow Rate . Vital Sign Comment: [] Latest Liu Fall Score: 55 Fall Risk: High Risk Safety Measures: Call light Within Reach, Bed Alarm Zone 1, Side Rails Side Rails x2, Bed position Low and Locked. Fall Precautions: Yellow Socks Yellow Gown Door Sign Patient Fall Education Report given to [Yazmin, RN].
[2020-07-10 20:00] VITALS: BP 124/75
[2020-07-11] VITALS: BP 113/64
[2020-07-11] MEDS: Vancomycin 1.5gm/NS Premix IVPB SCH (03:13)
[2020-07-11 04:00] VITALS: BP 126/72
--- NOTE | 2020-07-11 07:44 | NUR ---
NURSE NOTES: Received pt from Yazmin, RN. pt was resting, no pain. or acute distress. call light w/in reach.
--- NOTE | 2020-07-11 07:49 | NUR ---
NURSE HAND-OFF: Important Events on Shift: NEW IV, CONTINUED WITH ANTIBIOTICS, WOUND CARE Patient Status: STABLE Diet: REGULAR Pending Orders: N/A Pending Results/Labs: CBC, BMP. MAG., PHOS, VT Pending MD notification: N/A Latest Vital Signs: Temperature 97.7 , Pulse 82 , B/P 126 /72 , Respiratory Rate 19 , O2 SAT 95 , Room Air, O2 Flow Rate . Vital Sign Comment: STABLE Latest Liu Fall Score: 55 Fall Risk: High Risk Safety Measures: Call light Within Reach, Bed Alarm Zone 1, Side Rails Side Rails x2, Bed position Low and Locked. Fall Precautions: Yellow Socks Yellow Gown Door Sign Patient Fall Education Report given to JOYA REINOSO.
[2020-07-11 08:00] VITALS: BP 135/58
[2020-07-11] MEDS: Cyclobenzaprine 10mg Tab ORAL SCH ×2 (08:51→12:58)
[2020-07-11 12:00] VITALS: BP 117/72
[2020-07-11] MEDS ORDERED: VANCOMYCIN1.5 GM/15 IV ×3 (13:19→15:13)
[2020-07-11] MEDS ORDERED: CEFEPIME 22 GM/100 M IV (13:19)
--- NOTE | 2020-07-11 13:22 | Discharge Instructions ---
Discharge Instructions Discharge Instructions Diet: regular Activity: resume normal activities Follow Up Orders Finish 6 week course of IV abx for osteomyelitis Wound care, daily dressing changes For Surgical Patients Dressing Care: keep dry and clean May shower: Yes For Congestive Heart Failure Reminder Report to your physician any weight gain of 5 pounds or more in one week. Miguelangel Waterman D.O Jul 11, 2020 13:22
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
[2020-07-11 13:49] LABS: ANION GAP 8 mmol/L (5-15); BLOOD UREA NITROGEN 10 mg/dL (7-18); CALCIUM 8.6 MG/DL (8.5-10.1); CARBON DIOXIDE 26 MMOL/L (21-32); CHLORIDE 106 MMOL/L (98-107); PHOSPHORUS 3.6 MG/DL (2.5-4.9); POTASSIUM 3.7 MMOL/L (3.5-5.1); SODIUM 140 MMOL/L (136-145)
--- NOTE | 2020-07-11 14:02 | NUR ---
DISCHARGE PLANNING NEWLY DIAGNOSED OSTEOMYELITIS. PATIENT REFUSED PICC LINE SPOKE WITH JESI AT [facility] WHO STATED THEY WILL ACCEPT PATIENT 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
--- NOTE | 2020-07-11 14:17 | Surgery Progress Note ---
Surgery Progress Note Subjective Additional Comments MRI noted discussed with ID Objective Last 24 Hour Vital Signs Date Time Temp Pulse Resp B/P (MAP) Pulse Ox O2 Delivery O2 Flow Rate FiO2 07/11/20 12:00 97.1 70 19 117/72 (87) 98 07/11/20 08:05 Room Air 07/11/20 08:00 98.0 80 19 135/58 (83) 94 07/11/20 04:00 97.7 82 19 126/72 (90) 95 07/11/20 00:00 97.7 82 19 113/64 (80) 93 07/10/20 21:00 Room Air 07/10/20 20:09 74 18 96 Room Air 21 07/10/20 20:00 97.5 77 18 124/75 (91) 96 07/10/20 17:44 98.1 07/10/20 16:00 98.1 81 20 112/58 (76) 96 I&O Intake and Output 07/10/20 07/11/20 19:00 07:00 Intake Total 400 ml 400 ml Output Total 400 ml 1800 ml Balance 0 ml -1400 ml Intake Oral 400 ml 400 ml Output Urine Total 400 ml 1800 ml Dressing: saturated Cardiovascular: RSR Respiratory: decreased breath sounds Abdomen: non-tender, present bowel sounds Extremities: edema, no tenderness, no cyanosis Laboratory Tests Test 07/11/20 11:40 Sodium Level 140 MMOL/L (136-145) Potassium Level 3.7 MMOL/L (3.5-5.1) Chloride Level 106 MMOL/L (98-107) Carbon Dioxide Level 26 MMOL/L (21-32) Anion Gap 8 mmol/L (5-15) Blood Urea Nitrogen 10 mg/dL (7-18) Creatinine 1.0 MG/DL (0.55-1.30) Estimat Glomerular Filtration Rate > 60 mL/min (>60) Glucose Level 106 MG/DL (74-106) Calcium Level 8.6 MG/DL (8.5-10.1) Phosphorus Level 3.6 MG/DL (2.5-4.9) Magnesium Level 2.1 MG/DL (1.8-2.4) Plan Problems: (1) Cellulitis Assessment & Plan: cont abx local care initiated keep legs elevated heel protectors cont iv abx no abscess noted on exam thank you will follow with recs IV abx as per ID Osseous structures: Bones are diffusely demineralized. No acute fracture or dislocation. There is cortical discontinuity and medullary erosion of the distal fibula (9:63). Talar dome is unremarkable. There is diffuse irregular sclerosis of the tarsal bones, talus, and calcaneus, which may be related to renal osteodystrophy. There is mild to moderate multifocal intertarsal joint and tibiotalar joint, and subtalar joint osteoarthrosis characterized by subchondral sclerosis and cystic changes as well as marginal osteophyte formation. Soft tissues: There is epidermal irregularity and discontinuity overlying the distal fibula with subjacent soft tissue thickening and inflammatory changes. There is mild anasarca. No drainable fluid collection. Impression: Lateral malleolus skin ulceration and associated cellulitis with underlying cortical erosion of the distal fibula suggestive of acute osteomyelitis. As noted on CT, there is erosion of the inferolateral cortex of the distal right fibula/lateral malleolus. Extensive bone marrow edema involving the malleolus extending to the distal fibular shaft. While examination is limited without intravenous contrast, findings are concerning for osteomyelitis. Chronic avulsion injury noted with osseous fragment at the tip of the lateral malleolus. No acute fracture. IMPRESSION: Findings suggesting osteomyelitis of the distal right fibula/lateral malleolus. (2) Constipation (3) Fecal impaction (4) Infection Luis Fulton Jul 11, 2020 14:17
[2020-07-11 14:36] LABS: BASOPHILS % (AUTO) 0.6 % (0.0-2.0); EOSINOPHILS % (AUTO) 3.7 % (0.0-3.0); HEMATOCRIT 43.5 % (42.0-52.0); HEMOGLOBIN 13.4 G/DL (14.2-18.0); LYMPHOCYTES % (AUTO) 28.2 % (20.0-45.0); MEAN CORPUSCULAR VOLUME 73 FL (80-99); MONOCYTES % (AUTO) 7.3 % (1.0-10.0); NEUTROPHILS % (AUTO) 60.3 % (45.0-75.0); PLATELET COUNT 455 K/UL (150-450); RED BLOOD COUNT 5.99 M/UL (4.70-6.10); WHITE BLOOD COUNT 7.2 K/UL (4.8-10.8)
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
[2020-07-11] MEDS ORDERED: Tubing IV Secondary IV ONE (16:52)
--- NOTE | 2020-07-11 17:07 | NUR ---
NURSE NOTES: discharge pt to [facility], report given to Valerie. continue antibiotics. IV on the right hand G24 intact and patent goes with pt. pt was stable
[2020-07-11] MEDS ORDERED: Vancomycin 1.25 GM in NS 275 ML IVPB SCH (18:00)
== END 2020-07-11 16:53 | DRG 539 ==
LOC: EDUNIT# 11:01 → EDBD 11:01 → EMR 12:46 → 2E 12:50 → EDBEDREQ 17:59 → 4E 07-09 17:30
DX: M86.171 Other acute osteomyelitis, right ankle and foot (principal); L89.513 Pressure ulcer of right ankle, stage 3; L03.115 Cellulitis of right lower limb; G82.20 Paraplegia, unspecified; E44.1 Mild protein-calorie malnutrition; D64.9 Anemia, unspecified; G62.9 Polyneuropathy, unspecified; F12.90 Cannabis use, unspecified, uncomplicated; F17.210 Nicotine dependence, cigarettes, uncomplicated; B95.7 Other staphylococcus as the cause of diseases classified elsewhere; V89.2XXS Person injured in unspecified motor-vehicle accident, traffic, sequela; F17.200 Nicotine dependence, unspecified, uncomplicated; E78.5 Hyperlipidemia, unspecified; D50.9 Iron deficiency anemia, unspecified; K59.00 Constipation, unspecified
CPT/HCPCS: 36415; 80048; 80053; 80061; 80202; 82728; 83036; 83540; 83550; 83735; 84100; 85025; 85651; 86140; 87040; 87070; 87081; 87181; 87205; 93005; 93306; 94664; 96365; 96368; 99285; J7030; U0002

== ENCOUNTER 2020-08-20 22:38 | Inpatient (IN) | payer MEDICARE, MEDICAID ==
[~2020-08-20] VITALS: Ht 185.4 cm; Wt 98.0 kg
[~2020-08-20 22:38] MED LIST changes: +CEFEPIME 22 GM/100 M IV; +LATANOPROST 0.7.5 ML BOTH EYES; -LATANOPROST 0.7.5 ML OP; +VANCOMYCIN1.5 GM/15 IV
--- NOTE | 2020-08-20 22:45 | NUR ---
ED Nurse Note: Brought in ambulance [facility] unit [address] c/o fever and cough. Resulted postive covid. Pt present afebrile. Changed to gown, attached to monitor, vital stable. pt A&ox4 with no acute distress. All safty messures met.
[2020-08-20] MEDS ORDERED: CEFTRIAXONE2 G2 IV (22:51)
[2020-08-20] MEDS ORDERED: MYLANTA30 M1 GT (22:51)
[2020-08-20] MEDS ORDERED: LOVENOX10 M4 SUBQ (22:51)
[2020-08-20] MEDS ORDERED: dexAMETHasone 10mg/ml Inj IV ONE (23:00)
[2020-08-20] MEDS ORDERED: cefTRIAXone 1 GM in NS 55 ML IV ONE (23:00)
[2020-08-20] MEDS ORDERED: Azithromycin 500 MG in NS 275 ML IVPB ONE (23:00)
--- NOTE | 2020-08-20 23:12 | NUR ---
ED Nurse Note: Pt pressent with picc line OMID xavier luman, unable to drow blood. Blood drown via butterfly. blood intial lactic, blood culture, mrsa,vre,cre, covid,flu swab collected; sent down to lab. wound noted right foot, photo taken and uploaded. medicated pt and tolarreted well.
[2020-08-20 23:46] LABS: EOSINOPHILS % (AUTO) 0.2 % (0.0-3.0); HEMATOCRIT 40.6 % (42.0-52.0); HEMOGLOBIN 13.8 G/DL (14.2-18.0); LYMPHOCYTES % (AUTO) 23.4 % (20.0-45.0); MEAN CORPUSCULAR VOLUME 68 FL (80-99); MONOCYTES % (AUTO) 17.9 % (1.0-10.0); NEUTROPHILS % (AUTO) 57.4 % (45.0-75.0); PLATELET COUNT 204 K/UL (150-450); RED BLOOD COUNT 5.96 M/UL (4.70-6.10); RED CELL DISTRIBUTION WIDTH 14.3 % (11.6-14.8); WHITE BLOOD COUNT 4.4 K/UL (4.8-10.8)
[2020-08-20 23:53] LABS: ANION GAP 10 mmol/L (5-15); BLOOD UREA NITROGEN 12 mg/dL (7-18); CALCIUM 8.6 MG/DL (8.5-10.1); CARBON DIOXIDE 26 MMOL/L (21-32); CHLORIDE 99 MMOL/L (98-107); CREATININE 0.9 MG/DL (0.55-1.30); POTASSIUM 3.7 MMOL/L (3.5-5.1); SODIUM 135 MMOL/L (136-145)
--- NOTE | 2020-08-21 | NUR ---
ED Nurse Note: imaging done by rediology tech at bedside.
[2020-08-21 00:04] LABS: INR 1.1 (0.9-1.1)
[2020-08-21 00:09] LABS: ALANINE AMINOTRANSFERASE 38 U/L (12-78); ALBUMIN 3.4 G/DL (3.4-5.0); ALBUMIN/GLOBULIN RATIO 0.8 (1.0-2.7); ALKALINE PHOSPHATASE 170 U/L (46-116); ASPARTATE AMINO TRANSFERASE 34 U/L (15-37); BILIRUBIN,TOTAL 0.2 MG/DL (0.2-1.0); CREATINE KINASE 119 U/L (26-308); FERRITIN 589 NG/ML (8-388); LACTATE DEHYDROGENASE 218 U/L (81-234); PHOSPHORUS 3.4 MG/DL (2.5-4.9)
[2020-08-21 00:39] VITALS: BP 129/78
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
--- NOTE | 2020-08-21 01:45 | NUR ---
TRANSFER TO FLOOR: Patient transferred to [address] as ordered, per YOHANNES RIVAS. Report given to TIRSO HINSON. PATIENT STABLE FOR TRANSPORT. TRANSFERRED TO UNIT VIA GURNEY WITH 2 RN. BELONGINGS AND ADMISSION PACKET SENT DOWN TO LAB.
--- NOTE | 2020-08-21 02:00 | NUR ---
NURSE NOTES: Admitted patient awake, alert, verbal, paraplegic, no SOB noted.
[2020-08-21] MEDS ORDERED: Fleet's Enema 133ml RECTAL PRN (03:15)
[2020-08-21 04:00] VITALS: BP 154/94
--- NOTE | 2020-08-21 07:15 | NUR ---
NURSE NOTES: Report received from Chen HINSON, rounds made. Patient resting in semi-fowlers position in bed.AOx4, slightly irritable. Respirations even/unlabored on RA. Patient refused for RN to assess skin, was able to assess bilateral elbows and bilateral heels without touching patient, will attempt to assess backside and other areas later. Instructed patient on importance of allowing staff to assist patient with repositioning to prevent skin breakdown, patient refused at this time. OMID PICC double lumen in place, dressing in place, corners rolling off, will apply new tegederm, flushed, clamped,orange caps applied. Condom cath in place, y/cl urine, anchor applied to right thigh. Call light in reach, bed in lowest position, will continue to monitor. Addendum: 08/21/20 at 1731 by Kamala Dodge RN Patient removed anchor, refused to keep on, RN reinforced indication for anchor, patient states, "I don't want any tape on me" Addendum: 08/21/20 at 1738 by Kamala Dodge RN Right PICC, white port, lumen, does not flush.
--- NOTE | 2020-08-21 07:20 | NUR ---
HAND-OFF: Report given to Kamala Dodge RN.
[2020-08-21 08:00] VITALS: BP 143/93
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
[2020-08-21] MEDS: Enoxaparin 40mg Inj SUBQ SCH ×2 (09:00→09:41)
[2020-08-21] MEDS: Miralax 17gm pkt ORAL SCH ×2 (09:00→09:43)
[2020-08-21] MEDS ORDERED: dexAMETHasone 10mg/ml Inj IV SCH (09:00)
--- NOTE | 2020-08-21 09:07 | Consultation ---
History of Present Illness General Chief Complaint: Dyspnea/Respdistress Present Illness Allergies: Coded Allergies: No Known Allergies (Unverified , 05/25/20) Medication History Scheduled Ascorbic Acid* (Vitamin C*), 500 MG ORAL DAILY, (Reported) Enoxaparin* (Lovenox*), 40 MG SUBQ DAILY, (Reported) Polyethylene Glycol 3350* (Miralax*), 17 GM ORAL DAILY Vancomycin HCl in Water (Vancomycin 1,500 mg/15Ml-Water), 1.25 GM IV Q12HR Scheduled PRN Acetaminophen* (Acetaminophen 325MG Tablet*), 650 MG ORAL Q4H PRN for Pain Scale (3-5), (Reported) Na Phos,M-B/Na Phos,Di-Ba* (Fleet Enema*), 133 ML RECTAL DAILY PRN for Co nstipation Miscellaneous Medications Al Hydroxide/mg Hydroxide (Mag-Al Liquid), 30 ML GT, (Reported) Ceftriaxone Sodium (Ceftriaxone), 1 GM IV, (Reported) Latanoprost/Pf (Latanoprost 0.005% Eye Drop), 7.5 ML OP, (Reported) Discontinued Medications Cefepime Hcl/Dextrose, Iso-Osm (Cefepime 2 Gm Injection), 2 GM IV Q8HR Discontinued Reason: Therapy completed Cyclobenzaprine Hcl* (Flexeril*), 10 MG ORAL THREE TIMES A DAY, (Reported) Discontinued Reason: Medication dose changed Fluticasone Propionate (Flonase Allergy Relief), 9.9 ML NS, (Reported) Discontinued Reason: Pt stopped taking med Gabapentin* (Gabapentin*), 600 MG ORAL THREE TIMES A DAY, (Reported) Discontinued Reason: MD discontinued med Tamsulosin HCl (Flomax), 0.4 MG ORAL DAILY, (Reported) Discontinued Reason: Pt stopped taking med Tramadol Hcl* (Ultram*), 50 MG ORAL BID, (Reported) Discontinued Reason: Pt stopped taking med Zinc (Zinc), 50 MG ORAL, (Reported) Discontinued Reason: Pt stopped taking med Patient History Healthcare decision maker Resuscitation status Advanced Directive on File Physical Exam Last 24 Hour Vital Signs Date Time Temp Pulse Resp B/P (MAP) Pulse Ox O2 Delivery O2 Flow Rate FiO2 08/21/20 04:00 97.0 99 20 154/94 (114) 96 08/21/20 02:26 Room Air 08/21/20 01:45 98.5 98 19 129/78 95 Room Air 95 08/21/20 00:39 98.5 98 19 129/78 95 Room Air 08/21/20 00:37 98 19 Room Air 95 08/20/20 22:39 97.3 101 20 140/80 (100) 93 Room Air Intake and Output 08/20/20 08/21/20 19:00 07:00 Intake Total 280 ml Balance 280 ml Intake Oral 280 ml # Voids 2 # Bowel Movements 1 Laboratory Tests Test 08/20/20 23:12 White Blood Count 4.4 K/UL (4.8-10.8) L Red Blood Count 5.96 M/UL (4.70-6.10) Hemoglobin 13.8 G/DL (14.2-18.0) L Hematocrit 40.6 % (42.0-52.0) L Mean Corpuscular Volume 68 FL (80-99) L Mean Corpuscular Hemoglobin 23.2 PG (27.0-31.0) L Mean Corpuscular Hemoglobin Concent 34.1 G/DL (32.0-36.0) Red Cell Distribution Width 14.3 % (11.6-14.8) Platelet Count 204 K/UL (150-450) Mean Platelet Volume 7.8 FL (6.5-10.1) Neutrophils (%) (Auto) 57.4 % (45.0-75.0) Lymphocytes (%) (Auto) 23.4 % (20.0-45.0) Monocytes (%) (Auto) 17.9 % (1.0-10.0) H Eosinophils (%) (Auto) 0.2 % (0.0-3.0) Basophils (%) (Auto) 1.0 % (0.0-2.0) Prothrombin Time 12.1 SEC (9.30-11.50) H Prothromb Time International Ratio 1.1 (0.9-1.1) Activated Partial Thromboplast Time 36 SEC (23-33) H Sodium Level 135 MMOL/L (136-145) L Potassium Level 3.7 MMOL/L (3.5-5.1) Chloride Level 99 MMOL/L (98-107) Carbon Dioxide Level 26 MMOL/L (21-32) Anion Gap 10 mmol/L (5-15) Blood Urea Nitrogen 12 mg/dL (7-18) Creatinine 0.9 MG/DL (0.55-1.30) Estimat Glomerular Filtration Rate > 60 mL/min (>60) Glucose Level 98 MG/DL (74-106) Lactic Acid Level 0.60 mmol/L (0.4-2.0) Calcium Level 8.6 MG/DL (8.5-10.1) Phosphorus Level 3.4 MG/DL (2.5-4.9) Magnesium Level 2.1 MG/DL (1.8-2.4) Ferritin 589 NG/ML (8-388) H Total Bilirubin 0.2 MG/DL (0.2-1.0) Aspartate Amino Transf (AST/SGOT) 34 U/L (15-37) Alanine Aminotransferase (ALT/SGPT) 38 U/L (12-78) Alkaline Phosphatase 170 U/L (46-116) H Lactate Dehydrogenase 218 U/L (81-234) Total Creatine Kinase 119 U/L (26-308) Troponin I 0.002 ng/mL (0.000-0.056) C-Reactive Protein, Quantitative 4.1 mg/dL (0.00-0.90) H Pro-B-Type Natriuretic Peptide 31 pg/mL (0-125) Total Protein 7.8 G/DL (6.4-8.2) Albumin 3.4 G/DL (3.4-5.0) Globulin 4.4 g/dL Albumin/Globulin Ratio 0.8 (1.0-2.7) L Lipase 93 U/L (73-393) Microbiology Date/Time Source Procedure Growth Status 08/20/20 23:45 Nose - Final Complete 08/20/20 23:45 Nose - Final Complete Height (Feet): 6 Height (Inches): 1.00 Weight (Pounds): 216 Medications Current Medications Medications (Trade) Dose Ordered Sig/Hector Route PRN Reason Start Time Stop Time Status Last Admin Dose Admin Acetaminophen (Tylenol) 650 mg Q4H PRN ORAL Pain Scale (3-5) 08/21/20 03:15 09/20/20 03:14 Ascorbic Acid (Vitamin C) 500 mg DAILY ORAL 08/21/20 09:00 09/20/20 08:59 Azithromycin 500 mg/Dextrose 275 ml @ 275 mls/hr Q24HRS IV 08/21/20 22:00 08/27/20 22:59 Ceftriaxone Sodium 1 gm/ Dextrose 55 ml @ 110 mls/hr Q24H IVPB 08/21/20 23:00 08/28/20 22:59 Chlorhexidine Gluconate (Juany-Hex 2%) 1 applic DAILY@2000 TOPIC 08/21/20 20:00 11/19/20 19:59 Dexamethasone Sodium Phosphate (Decadron 10mg/ ml Inj) 10 mg Q24H IV 08/21/20 22:00 11/19/20 21:59 Enoxaparin Sodium (Lovenox) 40 mg DAILY SUBQ 08/21/20 09:00 11/19/20 08:59 Polyethylene Glycol (Miralax) 17 gm DAILY ORAL 08/21/20 09:00 09/20/20 08:59 Sodium Phosphate (Fleet's Sodium Phosl Enema) 133 ml DAILY PRN RECTAL Constipation 08/21/20 03:15 09/20/20 03:14 Guillermo Clay M.D. Aug 21, 2020 09:07
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
[2020-08-21] MEDS: Ascorbic Acid 500mg tab ORAL SCH (09:43)
--- NOTE | 2020-08-21 09:45 | NUR ---
NURSE NOTES: Patient refused Lovenox and Miralax, instructed patient on importance of blood thinner due to bedbound and laxative due to history of fecal impaction/constipation, refused, states, "last bowel movement was a couple days ago and I will have a bowel movement when I eat food". Breakfast provided, appetite poor. Encouraged PO fluid intake.
[2020-08-21 12:00] VITALS: BP 122/75
--- NOTE | 2020-08-21 15:08 | NUR ---
NURSE NOTES:WOUND CARE NOTES:Pt presented on admission with Full Thickness Ulcer lateral R Malleolus(L)1.5cm x (W)1cm.Base of wound is hypergranular with dry brown borders . No odor or exudate noted. No elevation in skin temp, erythema ,induration or fluctuance periwound. Pt informed staff wound resulted from hitting his foot against his w/c. Sacrum, heels and all bony prominences assessed. No other skin concerns noted. Tx.Plan:Cleanse wound R Lateral Malleolus with Saline. Apply Therahoney. Apply Cavilon Skin Barrier Periwound. Cover with Optifoam drsg. Change every 3 days and prn. Apply Moisture Barrier Paste to Sacrum. Cover with Optifoam drsg. Change every 3 days and prn. Apply Cavilon Skin Barrier to each heel. Cover each heel with Optifoam drsg. Change every 7 days and prn. Apply Cavilon skin Barrier Clefts of R and L ear Daily. (Pad Oxygen tubing as needed to prevent PI.) Reposition at least every 2hours or as tolerated. Off-load heels with Pillow.
--- NOTE | 2020-08-21 15:37 | Infectious Diseases Prog Note ---
Assessment/Plan Assessment/Plan Full consult dictated: A) 1) covid-19 infection per records, + pna/infiltrates 2) ? CAP 3) hx right ankle osteomyelitis, s/p treatment 6 weeks iv vancomycin and cefepime 4) pmh noted 5) allergies - nkda P) 1) ceftriaxone, azithromycin 2) dexamethasone 3) f/u on sed rate, right ankle x-ray 4) thank you Subjective Allergies: Coded Allergies: No Known Allergies (Unverified , 05/25/20) Objective Last 24 Hour Vital Signs Date Time Temp Pulse Resp B/P (MAP) Pulse Ox O2 Delivery O2 Flow Rate FiO2 08/21/20 12:00 97.7 95 18 122/75 (91) 95 08/21/20 08:00 97.5 93 17 143/93 (110) 94 08/21/20 04:00 97.0 99 20 154/94 (114) 96 08/21/20 02:26 Room Air 08/21/20 01:45 98.5 98 19 129/78 95 Room Air 95 08/21/20 00:39 98.5 98 19 129/78 95 Room Air 08/21/20 00:37 98 19 Room Air 95 08/20/20 22:39 97.3 101 20 140/80 (100) 93 Room Air Height (Feet): 6 Height (Inches): 1.00 Weight (Pounds): 216 Microbiology Date/Time Source Procedure Growth Status 08/20/20 23:45 Nose - Final Complete 08/20/20 23:45 Nose - Final Complete Laboratory Tests Test 08/20/20 23:12 White Blood Count 4.4 K/UL (4.8-10.8) L Red Blood Count 5.96 M/UL (4.70-6.10) Hemoglobin 13.8 G/DL (14.2-18.0) L Hematocrit 40.6 % (42.0-52.0) L Mean Corpuscular Volume 68 FL (80-99) L Mean Corpuscular Hemoglobin 23.2 PG (27.0-31.0) L Mean Corpuscular Hemoglobin Concent 34.1 G/DL (32.0-36.0) Red Cell Distribution Width 14.3 % (11.6-14.8) Platelet Count 204 K/UL (150-450) Mean Platelet Volume 7.8 FL (6.5-10.1) Neutrophils (%) (Auto) 57.4 % (45.0-75.0) Lymphocytes (%) (Auto) 23.4 % (20.0-45.0) Monocytes (%) (Auto) 17.9 % (1.0-10.0) H Eosinophils (%) (Auto) 0.2 % (0.0-3.0) Basophils (%) (Auto) 1.0 % (0.0-2.0) Prothrombin Time 12.1 SEC (9.30-11.50) H Prothromb Time International Ratio 1.1 (0.9-1.1) Activated Partial Thromboplast Time 36 SEC (23-33) H Sodium Level 135 MMOL/L (136-145) L Potassium Level 3.7 MMOL/L (3.5-5.1) Chloride Level 99 MMOL/L (98-107) Carbon Dioxide Level 26 MMOL/L (21-32) Anion Gap 10 mmol/L (5-15) Blood Urea Nitrogen 12 mg/dL (7-18) Creatinine 0.9 MG/DL (0.55-1.30) Estimat Glomerular Filtration Rate > 60 mL/min (>60) Glucose Level 98 MG/DL (74-106) Lactic Acid Level 0.60 mmol/L (0.4-2.0) Calcium Level 8.6 MG/DL (8.5-10.1) Phosphorus Level 3.4 MG/DL (2.5-4.9) Magnesium Level 2.1 MG/DL (1.8-2.4) Ferritin 589 NG/ML (8-388) H Total Bilirubin 0.2 MG/DL (0.2-1.0) Aspartate Amino Transf (AST/SGOT) 34 U/L (15-37) Alanine Aminotransferase (ALT/SGPT) 38 U/L (12-78) Alkaline Phosphatase 170 U/L (46-116) H Lactate Dehydrogenase 218 U/L (81-234) Total Creatine Kinase 119 U/L (26-308) Troponin I 0.002 ng/mL (0.000-0.056) C-Reactive Protein, Quantitative 4.1 mg/dL (0.00-0.90) H Pro-B-Type Natriuretic Peptide 31 pg/mL (0-125) Total Protein 7.8 G/DL (6.4-8.2) Albumin 3.4 G/DL (3.4-5.0) Globulin 4.4 g/dL Albumin/Globulin Ratio 0.8 (1.0-2.7) L Lipase 93 U/L (73-393) Current Medications Medications (Trade) Dose Ordered Sig/Hector Route PRN Reason Start Time Stop Time Status Last Admin Dose Admin Acetaminophen (Tylenol) 650 mg Q4H PRN ORAL Pain Scale (3-5) 08/21/20 03:15 09/20/20 03:14 Ascorbic Acid (Vitamin C) 500 mg DAILY ORAL 08/21/20 09:00 09/20/20 08:59 08/21/20 09:43 Azithromycin 500 mg/Dextrose 275 ml @ 275 mls/hr Q24HRS IV 08/21/20 22:00 08/27/20 22:59 Ceftriaxone Sodium 1 gm/ Dextrose 55 ml @ 110 mls/hr Q24H IVPB 08/21/20 23:00 08/28/20 22:59 Chlorhexidine Gluconate (Juany-Hex 2%) 1 applic DAILY@2000 TOPIC 08/21/20 20:00 11/19/20 19:59 Dexamethasone Sodium Phosphate (Decadron 10mg/ ml Inj) 10 mg Q24H IV 08/21/20 22:00 11/19/20 21:59 Enoxaparin Sodium (Lovenox) 40 mg DAILY SUBQ 08/21/20 09:00 11/19/20 08:59 Polyethylene Glycol (Miralax) 17 gm DAILY ORAL 08/21/20 09:00 09/20/20 08:59 Sodium Phosphate (Fleet's Sodium Phosl Enema) 133 ml DAILY PRN RECTAL Constipation 08/21/20 03:15 09/20/20 03:14 Juan Alva MD Aug 21, 2020 15:37
--- NOTE | 2020-08-21 15:53 | NUR ---
CASE MANAGEMENT:INITIAL REVIEW 64 YR OLD MALE BIBA FROM [facility] CC;DYSPNEA. RESPIRATORY DISTRESS. SI;COVID POSITIVE. HYPOXIA. 98.5 101 20 154/94 93% ON RA WBC 4.4 NA 135 FERRITIN 589 ALP 170 CRP 4.1 PT 12.1 APTT 36 COVID PCR ~ RESULT PENDING IS;ZITHROMAX IV DECADRON IV ROCEPHIN IV ADMITTED TO MED SURG DCP;FROM [facility]
[2020-08-21 16:00] VITALS: BP 149/92
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
--- NOTE | 2020-08-21 17:45 | NUR ---
NURSE NOTES: OMID PICC line dressing changed, using aseptic technique, surrounding skin intact, no redness/swelling/draining/bruising. New hubs applied to both ports, white port attempted to flush again, unsuccessful. Other port flushes, slowly, as noted earlier.
--- NOTE | 2020-08-21 17:52 | Diagnostic Imaging Report ---
Indication: Cough Technique: One view of the chest Comparison: none Findings: Atelectatic changes are seen at both lung bases. Right arm PICC is demonstrated. The heart size is normal. No infiltrates. Surgical hardware is seen in the cervical spine Impression: Bilateral basilar atelectasis. No acute process otherwise
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
--- NOTE | 2020-08-21 18:42 | Diagnostic Imaging Report ---
EXAM: XR Right Ankle Complete, 3 or More Views CLINICAL HISTORY: OSTEOMY TECHNIQUE: Frontal, lateral and oblique views of the right ankle. COMPARISON: 07/08/2020. FINDINGS: Bones/joints: There is diffuse osteopenia noted. Moderate osteoarthritic changes about the ankle joint. Ankle mortise is preserved. Moderate osteoarthritic changes right midfoot. No acute fracture or dislocation. Soft tissues: Unremarkable. IMPRESSION: 1. Diffuse osteopenia. 2. Advanced osteoarthritic changes. 3. If there is concern for cellulitis or osteomyelitis, magnetic resonance imaging should be performed.
--- NOTE | 2020-08-21 19:30 | NUR ---
NURSE NOTES: The patient is alert and oriented x4, was noted with some level of anxiety and agitations.A calm environment was provided and he was able to relaxed.The patient is on room air with Resp even and unlabored and the Bilateral lung sounds clear on auscultation. The bed in low level , call light within easy reach. will continue to monitor as indicated
[2020-08-21] MEDS: Dyna-Hex 2% Top Sol 2oz TOPIC SCH (20:00)
[2020-08-21 21:00] VITALS: BP 124/81
[2020-08-21] MEDS: Azithromycin 500 MG in D5W 275 ML IV SCH (21:46)
[2020-08-21] MEDS: dexAMETHasone 10mg/ml Inj IV SCH (22:18)
[2020-08-22] VITALS: BP 126/86
[2020-08-22] MEDS: cefTRIAXone 1 GM in D5W 55 ML IVPB SCH ×2 (00:14→22:12)
[2020-08-22 04:00] VITALS: BP 138/81
[2020-08-22 07:08] LABS: BASOPHILS % (AUTO) 0.2 % (0.0-2.0); EOSINOPHILS % (AUTO) 0.1 % (0.0-3.0); HEMATOCRIT 46.3 % (42.0-52.0); HEMOGLOBIN 15.1 G/DL (14.2-18.0); LYMPHOCYTES % (AUTO) 13.2 % (20.0-45.0); MEAN CORPUSCULAR VOLUME 71 FL (80-99); MONOCYTES % (AUTO) 5.1 % (1.0-10.0); NEUTROPHILS % (AUTO) 81.4 % (45.0-75.0); PLATELET COUNT 247 K/UL (150-450); RED BLOOD COUNT 6.56 M/UL (4.70-6.10); RED CELL DISTRIBUTION WIDTH 14.4 % (11.6-14.8); WHITE BLOOD COUNT 5.3 K/UL (4.8-10.8)
[2020-08-22 07:30] LABS: ALANINE AMINOTRANSFERASE 53 U/L (12-78); ALBUMIN 3.6 G/DL (3.4-5.0); ALBUMIN/GLOBULIN RATIO 0.8 (1.0-2.7); ALKALINE PHOSPHATASE 171 U/L (46-116); ANION GAP 10 mmol/L (5-15); ASPARTATE AMINO TRANSFERASE 34 U/L (15-37); BILIRUBIN,TOTAL 0.2 MG/DL (0.2-1.0); BLOOD UREA NITROGEN 15 mg/dL (7-18); CALCIUM 8.8 MG/DL (8.5-10.1); CARBON DIOXIDE 25 MMOL/L (21-32); CHLORIDE 101 MMOL/L (98-107); CREATININE 0.9 MG/DL (0.55-1.30); POTASSIUM 4.3 MMOL/L (3.5-5.1); SODIUM 136 MMOL/L (136-145)
--- NOTE | 2020-08-22 07:30 | NUR ---
NURSE HAND-OFF: Important Events on Shift:Alert and stable Patient Status: Diet: Pending Orders: Pending Results/Labs: Pending MD notification: Latest Vital Signs: Temperature 98.0 , Pulse 80 , B/P 138 /81 , Respiratory Rate 18 , O2 SAT 94 , Room Air, O2 Flow Rate . Vital Sign Comment: Latest Liu Fall Score: 55 Fall Risk: High Risk Safety Measures: Call light Within Reach, Bed Alarm Zone 2, Side Rails Side Rails x2, Bed position Low and Locked. Fall Precautions: Yellow Socks Door Sign Patient Fall Education Report given to .
[2020-08-22 08:00] VITALS: BP 149/85
[2020-08-22] MEDS: Miralax 17gm pkt ORAL SCH ×3 (08:06→22:11)
[2020-08-22] MEDS: Ascorbic Acid 500mg tab ORAL SCH ×2 (08:08→08:24)
[2020-08-22] MEDS: Enoxaparin 40mg Inj SUBQ SCH ×2 (08:09→08:24)
--- NOTE | 2020-08-22 08:15 | NUR ---
NURSE NOTES: Pt lying in bed w/bed in lowest position and call light within reach. Pt A&Ox4, VSS, and in no apparent distress. OMID PICC line intact/asymptomatic & H/L'd and wound dressings C/D/I; pt refused to let me do a proper skin assessment on his bottom/sacrum. Will continue to monitor.
--- NOTE | 2020-08-22 09:48 | Pulmonology Progress Note ---
Subjective ROS Limited/Unobtainable: No Constitutional: Reports: no symptoms HEENT: Repors: no symptoms Respiratory: Reports: no symptoms Cardiovascular: Reports: no symptoms Gastrointestinal/Abdominal: Reports: no symptoms Allergies: Coded Allergies: No Known Allergies (Unverified , 05/25/20) Objective Last 24 Hour Vital Signs Date Time Temp Pulse Resp B/P (MAP) Pulse Ox O2 Delivery O2 Flow Rate FiO2 08/22/20 04:00 98.0 80 18 138/81 (100) 94 08/22/20 00:00 98.0 91 20 126/86 (99) 94 08/21/20 21:00 97.8 94 20 124/81 (95) 94 08/21/20 21:00 Room Air 08/21/20 16:00 96.4 92 18 149/92 (111) 95 08/21/20 12:00 97.7 95 18 122/75 (91) 95 Intake and Output 08/21/20 08/22/20 19:00 07:00 Intake Total 500 ml Output Total 800 ml 500 ml Balance -300 ml -500 ml Intake Oral 500 ml Output Urine Total 800 ml 500 ml Objective 08/22/2020 pt laying in bed; NAD; saturating 94% on RA General Appearance: no acute distress HEENT: normocephalic Respiratory: chest wall non-tender, crackles/rales Cardiovascular: normal rate, regular rhythm Skin: other - right medial ankle osteomyelitis Microbiology Date/Time Source Procedure Growth Status 08/20/20 23:45 Nose - Final Complete 08/20/20 23:45 Nose - Final Complete 08/20/20 23:12 Blood Blood Culture - Preliminary NO GROWTH AFTER 24 HOURS Resulted 08/20/20 23:12 Blood Blood Culture - Preliminary NO GROWTH AFTER 24 HOURS Resulted Laboratory Tests 08/22/20 06:00: White Blood Count 5.3, Red Blood Count 6.56H, Hemoglobin 15.1, Hematocrit 46.3, Mean Corpuscular Volume 71L, Mean Corpuscular Hemoglobin 23.0L, Mean Corpuscular Hemoglobin Concent 32.6, Red Cell Distribution Width 14.4, Platelet Count 247, Mean Platelet Volume 8.1, Neutrophils (%) (Auto) 81.4H, Lymphocytes (%) (Auto) 13.2L, Monocytes (%) (Auto) 5.1, Eosinophils (%) (Auto) 0.1, Basophils (%) (Auto) 0.2, Sodium Level 136, Potassium Level 4.3, Chloride Level 101, Carbon Dioxide Level 25, Anion Gap 10, Blood Urea Nitrogen 15, Creatinine 0.9, Estimat Glomerular Filtration Rate > 60, Glucose Level 138H, Calcium Level 8.8, Total Bilirubin 0.2, Aspartate Amino Transf (AST/SGOT) 34, Alanine Aminotransferase (ALT/SGPT) 53, Alkaline Phosphatase 171H, Total Protein 8.3H, Albumin 3.6, Globulin 4.7, Albumin/Globulin Ratio 0.8L Current Medications Medications (Trade) Dose Ordered Sig/Hector Route PRN Reason Start Time Stop Time Status Last Admin Dose Admin Acetaminophen (Tylenol) 650 mg Q4H PRN ORAL Pain Scale (3-5) 08/21/20 03:15 09/20/20 03:14 08/21/20 21:49 Ascorbic Acid (Vitamin C) 500 mg DAILY ORAL 08/21/20 09:00 09/20/20 08:59 08/21/20 09:43 Azithromycin 500 mg/Dextrose 275 ml @ 275 mls/hr Q24HRS IV 08/21/20 22:00 08/27/20 22:59 08/21/20 21:46 Ceftriaxone Sodium 1 gm/ Dextrose 55 ml @ 110 mls/hr Q24H IVPB 08/21/20 23:00 08/28/20 22:59 08/22/20 00:14 Chlorhexidine Gluconate (Juany-Hex 2%) 1 applic DAILY@2000 TOPIC 08/21/20 20:00 11/19/20 19:59 08/21/20 20:00 Dexamethasone Sodium Phosphate (Decadron 10mg/ ml Inj) 10 mg Q24H IV 08/21/20 22:00 11/19/20 21:59 08/21/20 22:18 Enoxaparin Sodium (Lovenox) 40 mg DAILY SUBQ 08/21/20 09:00 11/19/20 08:59 Polyethylene Glycol (Miralax) 17 gm DAILY ORAL 08/21/20 09:00 09/20/20 08:59 Sodium Phosphate (Fleet's Sodium Phosl Enema) 133 ml DAILY PRN RECTAL Constipation 08/21/20 03:15 09/20/20 03:14 Assessment/Plan Assessment/Plan 1. Dyspnea. - Now saturating 94% on RA; pt appears comfortable in bed - Pt tested positive for COVID-19 at his nursing facility - Repeat test pending - Hold off on decadron given lack of hypoxemia 2. High suspicion for pneumonia. - 08/21/2020 CXR b/l basilar atelectasis - Hx of fever; currently afebrile - Recommend broad-spectrum Abx 3. Paraplegia. 4. Osteomyelitis in right medial ankle 5. Chronic tobacco usage. DVT ppx - pt refused Lovenox We will follow carefully. The care for this patient was discussed with my supervising physician Seen and examined by Dr. Bhatti as well Time spent for this case was approximately 31 minutes Fei De Santiago Aug 22, 2020 09:48 Hudson hBatti MD Aug 22, 2020 12:38
--- NOTE | 2020-08-22 09:59 | General Progress Note ---
Subjective Date patient seen: Aug 22, 2020 ROS Limited/Unobtainable: No Constitutional: Denies: no symptoms, chills, diaphoresis, fever, malaise, weakness, other HEENT: Denies: no symptoms, eye pain, blurred vision, tearing, double vision, ear pain, ear discharge, nose pain, nose congestion, throat pain, throat swelling, mouth pain, mouth swelling, other Cardiovascular: Denies: no symptoms, chest pain, edema, irregular heart rate, lightheadedness, palpitations, syncope, other Respiratory: Denies: no symptoms, cough, orthopnea, shortness of breath, SOB with excertion, SOB at rest, sputum, stridor, wheezing, other Gastrointestinal/Abdominal: Denies: no symptoms, abdomen distended, abdominal pain, black stools, tarry stools, blood in stool, constipated, diarrhea, difficulty swallowing, nausea, poor appetite, poor fluid intake, rectal bleeding, vomiting, other Genitourinary: Denies: no symptoms, burning, discharge, frequency, flank pain, hematuria, incontinence, pain, urgency, other Endocrine: Denies: no symptoms, excessive sweating, flushing, intolerance to cold, intolerance to heat, increased hunger, increased thirst, increased urine, unexplained weight gain, unexplained weight loss, other Hematologic/Lymphatic: Denies: no symptoms, anemia, easy bleeding, easy bruising, other Allergies: Coded Allergies: No Known Allergies (Unverified , 05/25/20) Subjective no acute events asking for his loratadine, gabapentin and Flexeril started on dexa Objective Last 24 Hour Vital Signs Date Time Temp Pulse Resp B/P (MAP) Pulse Ox O2 Delivery O2 Flow Rate FiO2 08/22/20 04:00 98.0 80 18 138/81 (100) 94 08/22/20 00:00 98.0 91 20 126/86 (99) 94 08/21/20 21:00 97.8 94 20 124/81 (95) 94 08/21/20 21:00 Room Air 08/21/20 16:00 96.4 92 18 149/92 (111) 95 08/21/20 12:00 97.7 95 18 122/75 (91) 95 Intake and Output 08/21/20 08/22/20 19:00 07:00 Intake Total 500 ml Output Total 800 ml 500 ml Balance -300 ml -500 ml Intake Oral 500 ml Output Urine Total 800 ml 500 ml Laboratory Tests 08/22/20 06:00: White Blood Count 5.3, Red Blood Count 6.56H, Hemoglobin 15.1, Hematocrit 46.3, Mean Corpuscular Volume 71L, Mean Corpuscular Hemoglobin 23.0L, Mean Corpuscular Hemoglobin Concent 32.6, Red Cell Distribution Width 14.4, Platelet Count 247, Mean Platelet Volume 8.1, Neutrophils (%) (Auto) 81.4H, Lymphocytes (%) (Auto) 13.2L, Monocytes (%) (Auto) 5.1, Eosinophils (%) (Auto) 0.1, Basophils (%) (Auto ) 0.2, Sodium Level 136, Potassium Level 4.3, Chloride Level 101, Carbon Dioxide Level 25, Anion Gap 10, Blood Urea Nitrogen 15, Creatinine 0.9, Estimat Glomerular Filtration Rate > 60, Glucose Level 138H, Calcium Level 8.8, Total Bilirubin 0.2, Aspartate Amino Transf (AST/SGOT) 34, Alanine Aminotransferase (ALT/SGPT) 53, Alkaline Phosphatase 171H, Total Protein 8.3H, Albumin 3.6, Globulin 4.7, Albumin/Globulin Ratio 0.8L Height (Feet): 6 Height (Inches): 1.00 Weight (Pounds): 216 General Appearance: no apparent distress EENT: PERRL/EOMI Neck: non-tender, supple Cardiovascular: normal peripheral pulses, normal rate, regular rhythm Respiratory/Chest: chest wall non-tender, lungs clear Abdomen: normal bowel sounds, non tender, soft Extremities: normal range of motion Assessment/Plan Status: stable Assessment/Plan: Assessment: 1-covid-19 infection per records, + pna/infiltrates 2- ? CAP 3- hx right ankle osteomyelitis, s/p treatment 6 weeks iv vancomycin and cefepime 4-HLD Plan: 1- ceftriaxone, azithromycin 2-dexamethasone per ID- no indication for remdesivir at this time 3- f/u on sed rate, right ankle x-ray 4-contact plus isolation I spent 40 minute son this encounter. Greater than 50%s pent on counselling and care coordination Yousuf Franz M.D. Aug 22, 2020 09:59
[2020-08-22] MEDS ORDERED: Zolpidem 5mg tab ORAL PRN (10:45)
[2020-08-22] MEDS: Cyclobenzaprine 10mg Tab ORAL SCH ×4 (11:27→17:43)
[2020-08-22] MEDS: Dorzolamide 2% 10ml Btl BOTH EYES SCH ×2 (11:29→22:11)
[2020-08-22 12:00] VITALS: BP 156/97
[2020-08-22] MEDS: Brimonidine 0.2% Opth Sol BOTH EYES SCH ×2 (13:58→22:11)
[2020-08-22] MEDS ORDERED: DORZOLAMIDE 2%10 ML BOTH EYES (14:29)
[2020-08-22] MEDS ORDERED: ZINC SULFATE220 M1 ORAL (14:29)
[2020-08-22] MEDS ORDERED: FLOMAX0.4 MG ORAL (14:29)
[2020-08-22] MEDS ORDERED: GABAPENTIN600 MG ORAL (14:29)
[2020-08-22] MEDS ORDERED: SANTYL OINTMENT TP (14:29)
[2020-08-22] MEDS ORDERED: HEPARIN SO5000 UNIT2 (14:29)
[2020-08-22] MEDS ORDERED: CYCLOBENZAPRINE10 MG ORAL (14:29)
[2020-08-22] MEDS ORDERED: FLONASE ALLERG9.9 ML NASAL (14:29)
[2020-08-22] MEDS ORDERED: TRAMADOL HCL50 MG ORAL (14:29)
[2020-08-22] MEDS ORDERED: AMBIEN5 MG ORAL (14:29)
[2020-08-22] MEDS ORDERED: DIPHENHYDRAMINE25 M1 ORAL (14:29)
[2020-08-22] MEDS ORDERED: VANCOMYCIN1.5 GM/300 IV (14:29)
[2020-08-22] MEDS ORDERED: BRIMONIDINE TART5 ML BOTH EYES (14:29)
[2020-08-22] MEDS ORDERED: LORATADINE10 M1 PO (14:29)
[2020-08-22 16:00] VITALS: BP 146/82
--- NOTE | 2020-08-22 19:38 | NUR ---
NURSE HAND-OFF: Important Events on Shift: Pt refused morning meds; called MD regarding frequency for Gabapentin and Flexeril. Patient Status: Stable Diet: Regular Pending Orders: None Pending Results/Labs: None Pending MD notification: None Latest Vital Signs: Temperature 97.8 , Pulse 90 , B/P 146 /82 , Respiratory Rate 18 , O2 SAT 97 , Room Air, O2 Flow Rate . Vital Sign Comment: Stable Latest Liu Fall Score: 55 Fall Risk: High Risk Safety Measures: Call light Within Reach, Bed Alarm Zone 2, Side Rails Side Rails x2, Bed position Low and Locked. Fall Precautions: Yellow Socks Door Sign Patient Fall Education Report given to JOYA Olivia.
--- NOTE | 2020-08-22 19:40 | NUR ---
NURSE NOTES: Patient in bed, awake and alert x4. On room air with no signs of SOB or distress. R UA PICC line noted; patent and intact. Condom cath in place. Bed locked and in lowest position. Call light in reach. Will continue plan of care.
[2020-08-22 20:00] VITALS: BP 110/74
[2020-08-22] MEDS ORDERED: Cyclobenzaprine 10mg Tab ORAL SCH (20:15)
[2020-08-22] MEDS: Dyna-Hex 2% Top Sol 2oz TOPIC SCH (21:24)
[2020-08-22] MEDS: dexAMETHasone 10mg/ml Inj IV SCH (22:12)
--- NOTE | 2020-08-22 23:09 | Surgery Progress Note ---
Surgery Progress Note Subjective Additional Comments no acute events Objective Last 24 Hour Vital Signs Date Time Temp Pulse Resp B/P (MAP) Pulse Ox O2 Delivery O2 Flow Rate FiO2 08/22/20 20:00 97.7 83 17 110/74 (86) 97 08/22/20 16:00 97.8 90 18 146/82 (103) 97 08/22/20 12:00 98.1 84 18 156/97 (116) 97 08/22/20 09:00 Room Air 08/22/20 08:00 97.6 93 18 149/85 (106) 95 08/22/20 04:00 98.0 80 18 138/81 (100) 94 08/22/20 00:00 98.0 91 20 126/86 (99) 94 I&O Intake and Output 08/21/20 08/22/20 19:00 07:00 Intake Total 500 ml Output Total 800 ml 500 ml Balance -300 ml -500 ml Intake Oral 500 ml Output Urine Total 800 ml 500 ml Cardiovascular: RSR Respiratory: decreased breath sounds Abdomen: non-tender, present bowel sounds Extremities: no cyanosis Laboratory Tests Test 08/22/20 06:00 White Blood Count 5.3 K/UL (4.8-10.8) Red Blood Count 6.56 M/UL (4.70-6.10) H Hemoglobin 15.1 G/DL (14.2-18.0) Hematocrit 46.3 % (42.0-52.0) Mean Corpuscular Volume 71 FL (80-99) L Mean Corpuscular Hemoglobin 23.0 PG (27.0-31.0) L Mean Corpuscular Hemoglobin Concent 32.6 G/DL (32.0-36.0) Red Cell Distribution Width 14.4 % (11.6-14.8) Platelet Count 247 K/UL (150-450) Mean Platelet Volume 8.1 FL (6.5-10.1) Neutrophils (%) (Auto) 81.4 % (45.0-75.0) H Lymphocytes (%) (Auto) 13.2 % (20.0-45.0) L Monocytes (%) (Auto) 5.1 % (1.0-10.0) Eosinophils (%) (Auto) 0.1 % (0.0-3.0) Basophils (%) (Auto) 0.2 % (0.0-2.0) Sodium Level 136 MMOL/L (136-145) Potassium Level 4.3 MMOL/L (3.5-5.1) Chloride Level 101 MMOL/L (98-107) Carbon Dioxide Level 25 MMOL/L (21-32) Anion Gap 10 mmol/L (5-15) Blood Urea Nitrogen 15 mg/dL (7-18) Creatinine 0.9 MG/DL (0.55-1.30) Estimat Glomerular Filtration Rate > 60 mL/min (>60) Glucose Level 138 MG/DL (74-106) H Calcium Level 8.8 MG/DL (8.5-10.1) Total Bilirubin 0.2 MG/DL (0.2-1.0) Aspartate Amino Transf (AST/SGOT) 34 U/L (15-37) Alanine Aminotransferase (ALT/SGPT) 53 U/L (12-78) Alkaline Phosphatase 171 U/L (46-116) H Total Protein 8.3 G/DL (6.4-8.2) H Albumin 3.6 G/DL (3.4-5.0) Globulin 4.7 g/dL Albumin/Globulin Ratio 0.8 (1.0-2.7) L Plan Problems: (1) Dyspnea (2) Fever (3) Suspected 2019-nCoV infection (4) Constipation (5) Cellulitis Assessment & Plan: Pt presented on admission with Full Thickness Ulcer lateral R Malleolus(L)1.5cm x (W)1cm.Base of wound is hypergranular with dry brown borders . No odor or exudate noted. No elevation in skin temp, erythema ,induration or fluctuance periwound. Pt informed staff wound resulted from hitting his foot against his w/c. Sacrum, heels and all bony prominences assessed. No other skin concerns noted. Tx.Plan:Cleanse wound R Lateral Malleolus with Saline. Apply Therahoney. Apply Cavilon Skin Barrier Periwound. Cover with Optifoam drsg. Change every 3 days and prn. Apply Moisture Barrier Paste to Sacrum. Cover with Optifoam drsg. Change every 3 days and prn. Apply Cavilon Skin Barrier to each heel. Cover each heel with Optifoam drsg. Change every 7 days and prn. Apply Cavilon skin Barrier Clefts of R and L ear Daily. (Pad Oxygen tubing as needed to prevent PI.) Reposition at least every 2hours or as tolerated. Off-load heels with Pillow. (6) Fecal impaction (7) Infection (8) Hypoxia (9) covid positive Luis Fulton Aug 22, 2020 23:09
[2020-08-22] MEDS: Azithromycin 500 MG in D5W 275 ML IV SCH (23:15)
--- NOTE | 2020-08-22 23:28 | NUR ---
NURSE NOTES: WCP taken of R lateral foot; RN attempted to assess sacral area but patient refused.
[2020-08-23] VITALS: BP 115/68
[2020-08-23 04:00] VITALS: BP 127/78
[2020-08-23] MEDS: Cyclobenzaprine 10mg Tab ORAL SCH ×3 (05:42→21:20)
[2020-08-23] MEDS: Brimonidine 0.2% Opth Sol BOTH EYES SCH ×3 (05:42→21:19)
--- NOTE | 2020-08-23 07:22 | NUR ---
NURSE NOTES: WALKING ROUNDS DONE WITH NIGHT RN. PATIENT AWAKE IN BED HAVING BREAKFAST. QUESTIONS ANSWERED, NEEDS MET AT THIS TIME. PATIENT GUARDED, UNWILLING TO GIVE EYE CONTACT. OMID PICC LINE PATENT AND SECURED. BED IN LOW AND LOCKED POSITION. PERSONAL ITEMS AND CALL LIGHT WITHIN REACH.
--- NOTE | 2020-08-23 07:43 | NUR ---
NURSE HAND-OFF: Important Events on Shift: No events Patient Status: Stable Diet: Reg Pending Orders: N/A Pending Results/Labs: SRW, KEENAN Pending MD notification: N/A Latest Vital Signs: Temperature 97.9 , Pulse 75 , B/P 127 /78 , Respiratory Rate 17 , O2 SAT 98 , Room Air, O2 Flow Rate . Vital Sign Comment: N/A Latest Liu Fall Score: 55 Fall Risk: High Risk Safety Measures: Call light Within Reach, Bed Alarm Zone 2, Side Rails Side Rails x2, Bed position Low and Locked. Fall Precautions: Yellow Socks Door Sign Patient Fall Education Report given to JOYA Triplett.
[2020-08-23 08:00] VITALS: BP 122/88
[2020-08-23] MEDS: Enoxaparin 40mg Inj SUBQ SCH (09:00)
[2020-08-23] MEDS: Dorzolamide 2% 10ml Btl BOTH EYES SCH ×2 (09:49→21:19)
[2020-08-23] MEDS: Ascorbic Acid 500mg tab ORAL SCH (09:50)
--- NOTE | 2020-08-23 10:21 | Pulmonology Progress Note ---
Subjective ROS Limited/Unobtainable: No Interval Events: None new Constitutional: Reports: no symptoms HEENT: Repors: no symptoms Respiratory: Reports: no symptoms Cardiovascular: Reports: no symptoms Gastrointestinal/Abdominal: Reports: no symptoms Allergies: Coded Allergies: No Known Allergies (Unverified , 05/25/20) Objective Last 24 Hour Vital Signs Date Time Temp Pulse Resp B/P (MAP) Pulse Ox O2 Delivery O2 Flow Rate FiO2 08/23/20 08:00 97.3 83 20 122/88 (99) 97 08/23/20 04:00 97.9 75 17 127/78 (94) 98 08/23/20 00:00 97.5 87 16 115/68 (84) 97 08/22/20 21:00 Room Air 08/22/20 20:00 97.7 83 17 110/74 (86) 97 08/22/20 16:00 97.8 90 18 146/82 (103) 97 08/22/20 12:00 98.1 84 18 156/97 (116) 97 Intake and Output 08/22/20 08/23/20 19:00 07:00 Intake Total 720 ml 480 ml Output Total 800 ml 600 ml Balance -80 ml -120 ml Intake Oral 720 ml 480 ml Output Urine Total 800 ml 600 ml # Voids 1 # Bowel Movements 1 Objective 08/23/2020 pt laying in bed; NAD; normal work of breathing with RA 08/22/2020 pt laying in bed; NAD; saturating 94% on RA General Appearance: no acute distress HEENT: normocephalic Respiratory: chest wall non-tender, crackles/rales Cardiovascular: normal rate, regular rhythm, other - R UA PICC line Genitourinary: other - condom cath Skin: other - right medial ankle osteomyelitis Microbiology Date/Time Source Procedure Growth Status 08/20/20 23:45 Rectum - Final NO CARBAPENEM-RESISTANT ENTEROBACTERI... Complete 08/20/20 23:45 Rectum VRE Culture - Final NO VANCOMYCIN RESISTANT ENTEROCOCCUS ... Complete 08/20/20 23:45 Nasal Nares MRSA Culture - Final NO METHICILLIN RESISTANT STAPH AUREUS... Complete 08/20/20 23:45 Nose - Final Complete 08/20/20 23:45 Nose - Final Complete 08/20/20 23:12 Blood Blood Culture - Preliminary NO GROWTH AFTER 48 HOURS Resulted 08/20/20 23:12 Blood Blood Culture - Preliminary NO GROWTH AFTER 48 HOURS Resulted Current Medications Medications (Trade) Dose Ordered Sig/Hector Route PRN Reason Start Time Stop Time Status Last Admin Dose Admin Acetaminophen (Tylenol) 650 mg Q4H PRN ORAL Pain Scale (3-5) 08/21/20 03:15 09/20/20 03:14 08/22/20 22:12 Ascorbic Acid (Vitamin C) 500 mg DAILY ORAL 08/21/20 09:00 09/20/20 08:59 08/23/20 09:50 Azithromycin 500 mg/Dextrose 275 ml @ 275 mls/hr Q24HRS IV 08/21/20 22:00 08/27/20 22:59 08/22/20 23:15 Brimonidine Tartrate (Alphagan) 1 drop Q8HR BOTH EYES 08/22/20 14:00 11/20/20 13:59 08/23/20 05:42 Ceftriaxone Sodium 1 gm/ Dextrose 55 ml @ 110 mls/hr Q24H IVPB 08/21/20 23:00 08/28/20 22:59 08/22/20 22:12 Chlorhexidine Gluconate (Juany-Hex 2%) 1 applic DAILY@2000 TOPIC 08/21/20 20:00 11/19/20 19:59 08/22/20 21:24 Cyclobenzaprine HCl (Flexeril) 10 mg EVERY 8 HOURS ORAL 08/23/20 06:00 08/29/20 20:14 08/23/20 05:42 Dexamethasone Sodium Phosphate (Decadron 10mg/ ml Inj) 10 mg Q24H IV 08/21/20 22:00 11/19/20 21:59 08/22/20 22:12 Diphenhydramine HCl (Benadryl) 25 mg Q6H PRN ORAL Itching 08/22/20 10:45 09/21/20 10:44 Dorzolamide HCl (Trusopt) 1 drop EVERY 12 HOURS BOTH EYES 08/22/20 11:30 09/21/20 11:29 08/23/20 09:49 Enoxaparin Sodium (Lovenox) 40 mg DAILY SUBQ 08/21/20 09:00 11/19/20 08:59 Gabapentin (Neurontin) 600 mg EVERY 8 HOURS ORAL 08/23/20 06:00 09/21/20 10:44 08/23/20 05:42 Loratadine (Claritin 10mg) 10 mg DAILY ORAL 08/22/20 11:00 09/21/20 10:59 08/23/20 09:50 Polyethylene Glycol (Miralax) 17 gm QHS ORAL 08/22/20 21:45 09/20/20 08:59 08/22/20 22:11 Sodium Phosphate (Fleet's Sodium Phosl Enema) 133 ml DAILY PRN RECTAL Constipation 08/21/20 03:15 09/20/20 03:14 Zolpidem Tartrate (Ambien) 5 mg HSPRN PRN ORAL Insomnia 08/22/20 10:45 08/29/20 10:44 Assessment/Plan Assessment/Plan 1. Dyspnea. - Now saturating 97% on RA; pt appears comfortable in bed - Pt tested positive for COVID-19 at his nursing facility - Repeat test pending - Hold off on decadron given lack of hypoxemia 2. High suspicion for pneumonia. - 08/21/2020 CXR b/l basilar atelectasis - Hx of fever; currently afebrile - Recommend broad-spectrum Abx 3. Paraplegia. 4. Osteomyelitis in right medial ankle - per wound care team 5. Chronic tobacco usage. DVT ppx - pt refusing lovenox; counseled on the need for and risks of declining lovenox; pt states he "doesn't need it" - venous duplex pending - Pt denies CP, SOB - SCD ordered I will follow carefully. The care for this patient was discussed with my supervising physician Seen and examined by Dr. Bhatti as well The history of Maurisio Cabrera has been reviewed and management options for him have been examined and discussed by Hudson Bhatti. I have personally examined and interviewed the patient. Time spent for this case was approximately 31 minutes Fei De Santiago Aug 23, 2020 10:21 Hudson Bhatti MD Aug 23, 2020 16:55
--- NOTE | 2020-08-23 11:07 | General Progress Note ---
Subjective Date patient seen: Aug 23, 2020 ROS Limited/Unobtainable: No Constitutional: Denies: no symptoms, chills, diaphoresis, fever, malaise, weakness, other HEENT: Denies: no symptoms, eye pain, blurred vision, tearing, double vision, ear pain, ear discharge, nose pain, nose congestion, throat pain, throat swelling, mouth pain, mouth swelling, other Cardiovascular: Denies: no symptoms, chest pain, edema, irregular heart rate, lightheadedness, palpitations, syncope, other Respiratory: Denies: no symptoms, cough, orthopnea, shortness of breath, SOB with excertion, SOB at rest, sputum, stridor, wheezing, other Gastrointestinal/Abdominal: Denies: no symptoms, abdomen distended, abdominal pain, black stools, tarry stools, blood in stool, constipated, diarrhea, difficulty swallowing, nausea, poor appetite, poor fluid intake, rectal bleeding, vomiting, other Genitourinary: Denies: no symptoms, burning, discharge, frequency, flank pain, hematuria, incontinence, pain, urgency, other Neurologic/Psychiatric: Denies: no symptoms, anxiety, depressed, emotional pr oblems, headache, numbness, paresthesia, pre-existing deficit, seizure, tingling, tremors, weakness, other Endocrine: Denies: no symptoms, excessive sweating, flushing, intolerance to cold, intolerance to heat, increased hunger, increased thirst, increased urine, unexplained weight gain, unexplained weight loss, other Hematologic/Lymphatic: Denies: no symptoms, anemia, easy bleeding, easy bruising, other Allergies: Coded Allergies: No Known Allergies (Unverified , 05/25/20) Subjective no acute events AFVSS tolerating treatments refusing lovenox refused gabapentin and Flexeril even though he asked for them to be ordered Objective Last 24 Hour Vital Signs Date Time Temp Pulse Resp B/P (MAP) Pulse Ox O2 Delivery O2 Flow Rate FiO2 08/23/20 08:00 97.3 83 20 122/88 (99) 97 08/23/20 04:00 97.9 75 17 127/78 (94) 98 08/23/20 00:00 97.5 87 16 115/68 (84) 97 08/22/20 21:00 Room Air 08/22/20 20:00 97.7 83 17 110/74 (86) 97 08/22/20 16:00 97.8 90 18 146/82 (103) 97 08/22/20 12:00 98.1 84 18 156/97 (116) 97 Intake and Output 08/22/20 08/23/20 18:59 06:59 Intake Total 720 ml 480 ml Output Total 800 ml 600 ml Balance -80 ml -120 ml Intake Oral 720 ml 480 ml Output Urine Total 800 ml 600 ml # Voids 1 # Bowel Movements 1 Height (Feet): 6 Height (Inches): 1.00 Weight (Pounds): 216 Objective General Appearance: no apparent distress EENT: PERRL/EOMI Neck: non-tender, supple Cardiovascular: normal peripheral pulses, normal rate, regular rhythm Respiratory/Chest: chest wall non-tender, lungs clear Abdomen: normal bowel sounds, non tender, soft Extremities: normal range of motion Assessment/Plan Status: stable Assessment/Plan: Assessment: 1-covid-19 infection per records, + pna/infiltrates 2- ? CAP 3- hx right ankle osteomyelitis, s/p treatment 6 weeks iv vancomycin and cefepime 4-HLD 5. Refusing treatment- refusing Lovenox 6.Glaucoma Plan: 1- ceftriaxone, azithromycin 2-dexamethasone per ID- no indication for remdesivir at this time 3- foot x ray reviewed 4-contact plus isolation 5.Blood cultures negative to date 6.patient counselled reg high risk of svt- still refused lovenox 7.Continue Glaucoma drops as ordered I spent 40 minute son this encounter. Greater than 50%s pent on counselling and care coordination Yousuf Franz M.D. Aug 23, 2020 11:07
--- NOTE | 2020-08-23 11:29 | NUR ---
NURSE NOTES: PATIENT REFUSED SCHEDULED LOVENOX. STATES THEY DON'T NEED IT. UNDERSTANDS THE RISK FACTORS AND USAGE OF MEDICATION. REPORTED TO KEVIN Foss WILL ORDER SCDS.
[2020-08-23 12:00] VITALS: BP 126/84
--- NOTE | 2020-08-23 12:20 | Diagnostic Imaging Report ---
EXAM: XR Chest, 1 View CLINICAL HISTORY: INFECT TECHNIQUE: Frontal view of the chest. COMPARISON: 08/21/20. FINDINGS: There is a redemonstrated right arm PICC, tip appropriately positioned near the cavoatrial junction. Right greater than left basilar atelectasis is again noted. Cannot exclude infectious infiltrate. No clear pleural effusion. No pneumothorax. Cervical spinal fusion hardware. IMPRESSION: Right greater than left basilar atelectasis is again noted. Cannot exclude infectious infiltrate.
[2020-08-23 13:35] LABS: ANION GAP 14 mmol/L (5-15); BLOOD UREA NITROGEN 14 mg/dL (7-18); CALCIUM 8.5 MG/DL (8.5-10.1); CARBON DIOXIDE 22 MMOL/L (21-32); CHLORIDE 102 MMOL/L (98-107); CREATININE 0.9 MG/DL (0.55-1.30); POTASSIUM 3.6 MMOL/L (3.5-5.1); SODIUM 138 MMOL/L (136-145)
--- NOTE | 2020-08-23 13:36 | Nephrology Progress Note ---
Assessment/Plan Plan 1-covid-19 infection per records, + pna/infiltrates 2- ? CAP 3- hx right ankle osteomyelitis, s/p treatment 6 weeks iv vancomycin and cefepime 4-HLD 5. Refusing treatment- refusing Lovenox 6.Glaucoma - continue antibiotics per ID - monitor electrolytes - avoid nephrotoxins - appreciate pulmonary recs Subjective ROS Limited/Unobtainable: No Constitutional: Reports: weakness HEENT: Denies: no symptoms, eye pain, blurred vision, tearing, double vision, ear pain, ear discharge, nose pain, nose congestion, throat pain, throat swelling, mouth pain, mouth swelling, other Genitourinary: Denies: no symptoms, burning, discharge, frequency, flank pain, hematuria, incontinence, pain, urgency, other Neurologic/Psychiatric: Denies: no symptoms, anxiety, depressed, emotional problems, headache, numbness, paresthesia, pre-existing deficit, seizure, tingling, tremors, weakness, other Subjective vitals stable refusing medications at times Objective Objective Last 24 Hour Vital Signs Date Time Temp Pulse Resp B/P (MAP) Pulse Ox O2 Delivery O2 Flow Rate FiO2 08/23/20 12:00 97.7 82 20 126/84 (98) 96 08/23/20 09:00 Room Air 08/23/20 08:00 97.3 83 20 122/88 (99) 97 08/23/20 04:00 97.9 75 17 127/78 (94) 98 08/23/20 00:00 97.5 87 16 115/68 (84) 97 08/22/20 21:00 Room Air 08/22/20 20:00 97.7 83 17 110/74 (86) 97 08/22/20 16:00 97.8 90 18 146/82 (103) 97 Intake and Output 08/22/20 08/23/20 19:00 07:00 Intake Total 720 ml 480 ml Output Total 800 ml 600 ml Balance -80 ml -120 ml Intake Oral 720 ml 480 ml Output Urine Total 800 ml 600 ml # Voids 1 # Bowel Movements 1 Laboratory Tests 08/23/20 13:00: Erythrocyte Sedimentation Rate [Pending], Sodium Level [Pending], Potassium Level [Pending], Chloride Level [Pending], Carbon Dioxide Level [Pending], Blood Urea Nitrogen [Pending], Creatinine [Pending], Estimat Glomerular Filtration Rate [Pending], Glucose Level [Pending], Calcium Level [Pending] Height (Feet): 6 Height (Inches): 1.00 Weight (Pounds): 216 General Appearance: no apparent distress, alert EENT: PERRL/EOMI, normal ENT inspection Neck: non-tender, normal alignment Cardiovascular: normal peripheral pulses, normal rate Respiratory/Chest: chest wall non-tender, lungs clear Abdomen: normal bowel sounds Extremities: normal range of motion, non-tender Guillermo Clay M.D. Aug 23, 2020 13:35
--- NOTE | 2020-08-23 14:45 | NUR ---
NURSE NOTES: PATIENT MORE COMPLIANT THIS AFTERNOON. WILLING TO TURN Q2H, APPLY SCDS AND TAKE PO MEDS. PATIENT REMAINS STABLE. WILL CONTINUE TO MONITOR.
[2020-08-23 16:00] VITALS: BP 111/71
--- NOTE | 2020-08-23 18:09 | Surgery Progress Note ---
Surgery Progress Note Subjective Symptoms: improved Additional Comments no n/v/f/c comfortable Objective Last 24 Hour Vital Signs Date Time Temp Pulse Resp B/P (MAP) Pulse Ox O2 Delivery O2 Flow Rate FiO2 08/23/20 16:00 96.4 72 20 111/71 (84) 96 08/23/20 12:00 97.7 82 20 126/84 (98) 96 08/23/20 09:00 Room Air 08/23/20 08:00 97.3 83 20 122/88 (99) 97 08/23/20 04:00 97.9 75 17 127/78 (94) 98 08/23/20 00:00 97.5 87 16 115/68 (84) 97 08/22/20 21:00 Room Air 08/22/20 20:00 97.7 83 17 110/74 (86) 97 I&O Intake and Output 08/22/20 08/23/20 19:00 07:00 Intake Total 720 ml 480 ml Output Total 800 ml 600 ml Balance -80 ml -120 ml Intake Oral 720 ml 480 ml Output Urine Total 800 ml 600 ml # Voids 1 # Bowel Movements 1 Cardiovascular: RSR Respiratory: clear, decreased breath sounds Abdomen: soft, non-tender, present bowel sounds Extremities: no edema, no tenderness Laboratory Tests Test 08/23/20 13:00 Erythrocyte Sedimentation Rate 8 MM/HR (0-20) Sodium Level 138 MMOL/L (136-145) Potassium Level 3.6 MMOL/L (3.5-5.1) Chloride Level 102 MMOL/L (98-107) Carbon Dioxide Level 22 MMOL/L (21-32) Anion Gap 14 mmol/L (5-15) Blood Urea Nitrogen 14 mg/dL (7-18) Creatinine 0.9 MG/DL (0.55-1.30) Estimat Glomerular Filtration Rate > 60 mL/min (>60) Glucose Level 156 MG/DL (74-106) H Calcium Level 8.5 MG/DL (8.5-10.1) Plan Problems: (1) Dyspnea (2) Fever (3) Suspected 2019-nCoV infection (4) Constipation (5) Cellulitis Assessment & Plan: Pt presented on admission with Full Thickness Ulcer lateral R Malleolus(L)1.5cm x (W)1cm.Base of wound is hypergranular with dry brown borders . No odor or exudate noted. No elevation in skin temp, erythema ,induration or fluctuance periwound. Pt informed staff wound resulted from hitting his foot against his w/c. Sacrum, heels and all bony prominences assessed. No other skin concerns noted. Tx.Plan:Cleanse wound R Lateral Malleolus with Saline. Apply Therahoney. Apply Cavilon Skin Barrier Periwound. Cover with Optifoam drsg. Change every 3 days and prn. Apply Moisture Barrier Paste to Sacrum. Cover with Optifoam drsg. Change every 3 days and prn. Apply Cavilon Skin Barrier to each heel. Cover each heel with Optifoam drsg. Change every 7 days and prn. Apply Cavilon skin Barrier Clefts of R and L ear Daily. (Pad Oxygen tubing as needed to prevent PI.) Reposition at least every 2hours or as tolerated. Off-load heels with Pillow. (6) Fecal impaction (7) Infection (8) Hypoxia (9) covid positive Luis Fulton Aug 23, 2020 18:09
--- NOTE | 2020-08-23 19:31 | NUR ---
NURSE HAND-OFF: Important Events on Shift:N/A Patient Status: STABLE Diet: REGULAR Pending Orders: NEEDS TO BLE VENOUS DUPLEX DONE; ORDERED 08/21,TECH HERE; LEFT. P.A.OF [facility] MADE AWARE. Pending Results/Labs:[] Pending MD notification:[] Latest Vital Signs: Temperature 96.4 , Pulse 72 , B/P 111 /71 , Respiratory Rate 20 , O2 SAT 96 , Room Air, O2 Flow Rate . Vital Sign Comment:N/A Latest Liu Fall Score: 55 Fall Risk: High Risk Safety Measures: Call light Within Reach, Bed Alarm Zone 2, Side Rails Side Rails x2, Bed position Low and Locked. Fall Precautions: Door Sign Patient Fall Education Report given to GRACIELA HINSON.
--- NOTE | 2020-08-23 19:35 | NUR ---
NURSE NOTES: Received pt awake, A&Ox4, and Verbal. pt has no sob, fever and cough at the moment. Iv is intact and asymptomatic. Bed is in the lowest position,locked, and alarm on. We will keep monitoring the pt
[2020-08-23 20:00] VITALS: BP 125/77
[2020-08-23] MEDS: Miralax 17gm pkt ORAL SCH (21:00)
[2020-08-23] MEDS: Dyna-Hex 2% Top Sol 2oz TOPIC SCH (21:19)
[2020-08-23] MEDS: dexAMETHasone 10mg/ml Inj IV SCH (21:19)
[2020-08-23] MEDS: Azithromycin 500 MG in D5W 275 ML IV SCH (21:19)
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
[2020-08-23] MEDS: cefTRIAXone 1 GM in D5W 55 ML IVPB SCH (22:27)
[2020-08-24] VITALS: BP 130/81
[2020-08-24 04:00] VITALS: BP 123/77
[2020-08-24] MEDS: Cyclobenzaprine 10mg Tab ORAL SCH ×3 (05:21→21:00)
[2020-08-24] MEDS: Brimonidine 0.2% Opth Sol BOTH EYES SCH ×3 (05:25→21:00)
--- NOTE | 2020-08-24 07:25 | NUR ---
HAND-OFF: Report given to JOYA DE LUNA.
--- NOTE | 2020-08-24 07:41 | NUR ---
NURSE NOTES: Pt. received from JOYA Artis. Pt. AAOx4, on room air, breathing is even and unlabored no indications of respiratory distress, no SOB, no complaints of pain at this time. IV noted right upper arm 20g, intact and patent. Bed low and locked, side rails x3 up, bed alarm active, and call light in reach.
[2020-08-24 08:00] VITALS: BP 117/70
[2020-08-24] MEDS: Ascorbic Acid 500mg tab ORAL SCH (08:51)
[2020-08-24] MEDS: Dorzolamide 2% 10ml Btl BOTH EYES SCH ×2 (08:51→21:00)
[2020-08-24] MEDS: Enoxaparin 40mg Inj SUBQ SCH (08:51)
--- NOTE | 2020-08-24 08:54 | General Progress Note ---
Subjective Date patient seen: Aug 24, 2020 ROS Limited/Unobtainable: No Constitutional: Denies: no symptoms, chills, diaphoresis, fever, malaise, weakness, other HEENT: Denies: no symptoms, eye pain, blurred vision, tearing, double vision, ear pain, ear discharge, nose pain, nose congestion, throat pain, throat swelling, mouth pain, mouth swelling, other Cardiovascular: Denies: no symptoms, chest pain, edema, irregular heart rate, lightheadedness, palpitations, syncope, other Respiratory: Denies: no symptoms, cough, orthopnea, shortness of breath, SOB with excertion, SOB at rest, sputum, stridor, wheezing, other Gastrointestinal/Abdominal: Denies: no symptoms, abdomen distended, abdominal pain, black stools, tarry stools, blood in stool, constipated, diarrhea, difficulty swallowing, nausea, poor appetite, poor fluid intake, rectal bleeding, vomiting, other Genitourinary: Denies: no symptoms, burning, discharge, frequency, flank pain, hematuria, incontinence, pain, urgency, other Neurologic/Psychiatric: Denies: no symptoms, anxiety, depressed, emotional pr oblems, headache, numbness, paresthesia, pre-existing deficit, seizure, tingling, tremors, weakness, other Endocrine: Denies: no symptoms, excessive sweating, flushing, intolerance to cold, intolerance to heat, increased hunger, increased thirst, increased urine, unexplained weight gain, unexplained weight loss, other Hematologic/Lymphatic: Denies: no symptoms, anemia, easy bleeding, easy bruising, other Allergies: Coded Allergies: No Known Allergies (Unverified , 05/25/20) Subjective no acute events AFVSS tolerating treatments refusing lovenox Objective Last 24 Hour Vital Signs Date Time Temp Pulse Resp B/P (MAP) Pulse Ox O2 Delivery O2 Flow Rate FiO2 08/24/20 04:00 98.2 73 18 123/77 (92) 97 08/24/20 00:00 98.1 79 16 130/81 (97) 98 08/23/20 20:20 Room Air 08/23/20 20:00 98.3 77 18 125/77 (93) 98 08/23/20 16:00 96.4 72 20 111/71 (84) 96 08/23/20 12:00 97.7 82 20 126/84 (98) 96 08/23/20 09:00 Room Air Intake and Output 08/23/20 08/24/20 18:59 06:59 Intake Total 1600 ml 780 ml Output Total 700 ml 1100 ml Balance 900 ml -320 ml Intake Oral 1600 ml 780 ml Output Urine Total 700 ml 1100 ml # Voids 1 # Bowel Movements 1 Laboratory Tests 08/23/20 13:00: Erythrocyte Sedimentation Rate 8, Sodium Level 138, Potassium Level 3.6, Chloride Level 102, Carbon Dioxide Level 22, Anion Gap 14, Blood Urea Nitrogen 14, Creatinine 0.9, Estimat Glomerular Filtration Rate > 60, Glucose Level 156H, Calcium Level 8.5 Height (Feet): 6 Height (Inches): 1.00 Weight (Pounds): 216 Objective General Appearance: no apparent distress EENT: PERRL/EOMI Neck: non-tender, supple Cardiovascular: normal peripheral pulses, normal rate, regular rhythm Respiratory/Chest: chest wall non-tender, lungs clear Abdomen: normal bowel sounds, non tender, soft Extremities: normal range of motion Assessment/Plan Status: stable Assessment/Plan: Assessment: 1-covid-19 infection per records, + pna/infiltrates 2- ? CAP 3- hx right ankle osteomyelitis, s/p treatment 6 weeks iv vancomycin and cefepime 4-HLD 5. Refusing treatment- refusing Lovenox, says "he doesn't need it" 6.Glaucoma Plan: 1- ceftriaxone, azithromycin- Day #4 2-dexamethasone per ID- day #4 no indication for remdesivir at this time 3- foot x ray reviewed 4-contact plus isolation 5.Blood cultures negative to date 6.patient counselled reg high risk of dvt, PE and - still refused Lovenox 7.Continue Glaucoma drops as ordered disposition: back to SNF 1-2 days I spent 40 minute son this encounter. Greater than 50% spent on counselling and care coordination Yousuf Franz M.D. Aug 24, 2020 08:54
--- NOTE | 2020-08-24 09:11 | Pulmonology Progress Note ---
Subjective ROS Limited/Unobtainable: No Interval Events: None new Constitutional: Denies: fever HEENT: Repors: no symptoms Respiratory: Reports: no symptoms Cardiovascular: Reports: no symptoms Gastrointestinal/Abdominal: Reports: other - condom catheter ; Denies: nausea, vomiting, diarrhea Psychiatric: Denies: depression Skin: Denies: rash Musculoskeletal: Denies: pain Allergies: Coded Allergies: No Known Allergies (Unverified , 05/25/20) Objective Last 24 Hour Vital Signs Date Time Temp Pulse Resp B/P (MAP) Pulse Ox O2 Delivery O2 Flow Rate FiO2 08/24/20 04:00 98.2 73 18 123/77 (92) 97 08/24/20 00:00 98.1 79 16 130/81 (97) 98 08/23/20 20:20 Room Air 08/23/20 20:00 98.3 77 18 125/77 (93) 98 08/23/20 16:00 96.4 72 20 111/71 (84) 96 08/23/20 12:00 97.7 82 20 126/84 (98) 96 Intake and Output 08/23/20 08/24/20 19:00 07:00 Intake Total 1600 ml 780 ml Output Total 700 ml 1100 ml Balance 900 ml -320 ml Intake Oral 1600 ml 780 ml Output Urine Total 700 ml 1100 ml # Voids 1 # Bowel Movements 1 Objective 08/24/2020 pt laying in bed; NAD; normal work of breathing on RA 08/23/2020 pt laying in bed; NAD; normal work of breathing with RA 08/22/2020 pt laying in bed; NAD; saturating 94% on RA General Appearance: no acute distress HEENT: normocephalic Respiratory: chest wall non-tender, crackles/rales Cardiovascular: normal rate, regular rhythm, other - R UA PICC line Genitourinary: other - condom cath Skin: other - right medial ankle osteomyelitis Laboratory Tests 08/23/20 13:00: Erythrocyte Sedimentation Rate 8, Sodium Level 138, Potassium Level 3.6, Chloride Level 102, Carbon Dioxide Level 22, Anion Gap 14, Blood Urea Nitrogen 14, Creatinine 0.9, Estimat Glomerular Filtration Rate > 60, Glucose Level 156H, Calcium Level 8.5 Current Medications Medications (Trade) Dose Ordered Sig/Hector Route PRN Reason Start Time Stop Time Status Last Admin Dose Admin Acetaminophen (Tylenol) 650 mg Q4H PRN ORAL Pain Scale (3-5) 08/21/20 03:15 09/20/20 03:14 08/23/20 21:20 Ascorbic Acid (Vitamin C) 500 mg DAILY ORAL 08/21/20 09:00 09/20/20 08:59 08/24/20 08:51 Azithromycin 500 mg/Dextrose 275 ml @ 275 mls/hr Q24HRS IV 08/21/20 22:00 08/27/20 22:59 08/23/20 21:19 Brimonidine Tartrate (Alphagan) 1 drop Q8HR BOTH EYES 08/22/20 14:00 11/20/20 13:59 08/24/20 05:25 Ceftriaxone Sodium 1 gm/ Dextrose 55 ml @ 110 mls/hr Q24H IVPB 08/21/20 23:00 08/28/20 22:59 08/23/20 22:27 Chlorhexidine Gluconate (Juany-Hex 2%) 1 applic DAILY@2000 TOPIC 08/21/20 20:00 11/19/20 19:59 08/23/20 21:19 Cyclobenzaprine HCl (Flexeril) 10 mg EVERY 8 HOURS ORAL 08/23/20 06:00 08/29/20 20:14 08/24/20 05:21 Dexamethasone Sodium Phosphate (Decadron 10mg/ ml Inj) 10 mg Q24H IV 08/21/20 22:00 08/30/20 21:59 08/23/20 21:19 Diphenhydramine HCl (Benadryl) 25 mg Q6H PRN ORAL Itching 08/22/20 10:45 09/21/20 10:44 08/23/20 22:27 Dorzolamide HCl (Trusopt) 1 drop EVERY 12 HOURS BOTH EYES 08/22/20 11:30 09/21/20 11:29 08/24/20 08:51 Enoxaparin Sodium (Lovenox) 40 mg DAILY SUBQ 08/21/20 09:00 11/19/20 08:59 Gabapentin (Neurontin) 600 mg EVERY 8 HOURS ORAL 08/23/20 06:00 09/21/20 10:44 08/24/20 05:21 Loratadine (Claritin 10mg) 10 mg DAILY ORAL 08/22/20 11:00 09/21/20 10:59 08/24/20 08:51 Polyethylene Glycol (Miralax) 17 gm QHS ORAL 08/22/20 21:45 09/20/20 08:59 08/22/20 22:11 Sodium Phosphate (Fleet's Sodium Phosl Enema) 133 ml DAILY PRN RECTAL Constipation 08/21/20 03:15 09/20/20 03:14 Zolpidem Tartrate (Ambien) 5 mg HSPRN PRN ORAL Insomnia 08/22/20 10:45 08/29/20 10:44 08/23/20 22:27 Assessment/Plan Assessment/Plan 1. Dyspnea. - Now saturating 97% on RA; pt appears comfortable in bed - Pt tested positive for COVID-19 at his nursing facility - COVID-19 PCR test positive 08/20/2020 - Hold off on decadron given lack of hypoxemia 2. High suspicion for pneumonia. - 08/21/2020 CXR b/l basilar atelectasis - Hx of fever; currently afebrile - Recommend broad-spectrum Abx 3. Paraplegia. 4. Osteomyelitis in right medial ankle - per wound care team 5. Chronic tobacco usage. DVT ppx - pt refusing lovenox; counseled on the need for and risks of declining lovenox; pt states he "doesn't need it" - venous duplex pending - Pt denies CP, SOB - on SCD We will follow carefully. The care for this patient was discussed with my supervising physician The history of Maurisio Cabrera has been reviewed and management options for him have been examined and discussed by Hudson Bhatti. I have personally examined and interviewed the patient. Time spent for this case was approximately 31 minutes Fei De Santiago Aug 24, 2020 09:11 Hudson Bhatti MD Aug 24, 2020 17:36
[2020-08-24 12:00] VITALS: BP 110/79
--- NOTE | 2020-08-24 13:09 | NUR ---
RD ASSESSMENT & RECOMMENDATIONS SEE CARE ACTIVITY FOR COMPLETE ASSESSMENT DAILY ESTIMATED NEEDS: Needs based on Wound, 87kg abw 25-30 kcals/kg 2961-1925 total kcals 1.25-1.8 g protein/kg 108-156 g total protein 25-30 mL/kg 3958-3065 total fluid mLs NUTRITION DIAGNOSIS: Increased kcal/prot needs R/T wound healing as evidenced by pt admitted w/ full thickness ulcer lateral R malleolus. CURRENT DIET:REGULAR PO DIET RECOMMENDATIONS: REGULAR + double protein portions ADDITIONAL RECOMMENDATIONS: * Wound healing: add MVI w/ min 1 tab QD + ZnSO4 220mg QD x 10 days Continue Vit C/ add Cyrus 1pkt BID * Monitor for continued good PO intake * Monitor BGs closely while on Decadron * Calibrated bedscale wts
--- NOTE | 2020-08-24 13:33 | Nephrology Progress Note ---
Assessment/Plan Plan 1-covid-19 infection per records, + pna/infiltrates 2- ? CAP 3- hx right ankle osteomyelitis, s/p treatment 6 weeks iv vancomycin and cefepime 4-HLD 5. Refusing treatment- refusing Lovenox 6.Glaucoma - continue antibiotics per ID - monitor electrolytes - avoid nephrotoxins - appreciate pulmonary recs Subjective ROS Limited/Unobtainable: No Constitutional: Reports: weakness HEENT: Denies: no symptoms, eye pain, blurred vision, tearing, double vision, ear pain, ear discharge, nose pain, nose congestion, throat pain, throat swelling, mouth pain, mouth swelling, other Genitourinary: Denies: no symptoms, burning, discharge, frequency, flank pain, hematuria, incontinence, pain, urgency, other Neurologic/Psychiatric: Denies: no symptoms, anxiety, depressed, emotional problems, headache, numbness, paresthesia, pre-existing deficit, seizure, tingling, tremors, weakness, other Subjective vitals stable refusing medications at times Objective Objective Last 24 Hour Vital Signs Date Time Temp Pulse Resp B/P (MAP) Pulse Ox O2 Delivery O2 Flow Rate FiO2 08/24/20 04:00 98.2 73 18 123/77 (92) 97 08/24/20 00:00 98.1 79 16 130/81 (97) 98 08/23/20 20:20 Room Air 08/23/20 20:00 98.3 77 18 125/77 (93) 98 08/23/20 16:00 96.4 72 20 111/71 (84) 96 l Intake and Output 08/23/20 08/24/20 19:00 07:00 Intake Total 1600 ml 780 ml Output Total 700 ml 1100 ml Balance 900 ml -320 ml Intake Oral 1600 ml 780 ml Output Urine Total 700 ml 1100 ml # Voids 1 # Bowel Movements 1 Height (Feet): 6 Height (Inches): 1.00 Weight (Pounds): 216 Guillermo Clay M.D. Aug 24, 2020 13:33
[2020-08-24 16:00] VITALS: BP 104/60
--- NOTE | 2020-08-24 16:49 | NUR ---
CASE MANAGEMENT:REVIEW SI;COVID PNEUMONIA 98.2 92 19 130/81 95% ON RA IS;DECADRON IV QD ZITHROMAX IV LOVENOX SQ QD VIT C PO QD TYLENOL PO Q4 PRN CLARITIN PO QD MED SURG STATUS DCP;FROM VENKAT JERRY
--- NOTE | 2020-08-24 17:04 | Surgery Progress Note ---
Surgery Progress Note Subjective Symptoms: improved, pain absent, tolerating diet, passing flatus, BM Objective Last 24 Hour Vital Signs Date Time Temp Pulse Resp B/P (MAP) Pulse Ox O2 Delivery O2 Flow Rate FiO2 08/24/20 12:00 97.9 92 18 110/79 (89) 95 08/24/20 09:00 Room Air 08/24/20 08:00 98.2 82 19 117/70 (86) 95 08/24/20 04:00 98.2 73 18 123/77 (92) 97 08/24/20 00:00 98.1 79 16 130/81 (97) 98 08/23/20 20:20 Room Air 08/23/20 20:00 98.3 77 18 125/77 (93) 98 I&O Intake and Output 08/23/20 08/24/20 19:00 07:00 Intake Total 1600 ml 780 ml Output Total 700 ml 1100 ml Balance 900 ml -320 ml Intake Oral 1600 ml 780 ml Output Urine Total 700 ml 1100 ml # Voids 1 # Bowel Movements 1 Dressing: saturated Cardiovascular: RSR Respiratory: decreased breath sounds Abdomen: non-tender, present bowel sounds, non-distended Extremities: no tenderness, no cyanosis Plan Problems: (1) Dyspnea (2) Fever (3) Suspected 2019-nCoV infection (4) Constipation (5) Cellulitis Assessment & Plan: Pt presented on admission with Full Thickness Ulcer lateral R Malleolus(L)1.5cm x (W)1cm.Base of wound is hypergranular with dry brown borders . No odor or exudate noted. No elevation in skin temp, erythema ,induration or fluctuance periwound. Pt informed staff wound resulted from hitting his foot against his w/c. Sacrum, heels and all bony prominences assessed. No other skin concerns noted. Tx.Plan:Cleanse wound R Lateral Malleolus with Saline. Apply Therahoney. Apply Cavilon Skin Barrier Periwound. Cover with Optifoam drsg. Change every 3 days and prn. Apply Moisture Barrier Paste to Sacrum. Cover with Optifoam drsg. Change every 3 days and prn. Apply Cavilon Skin Barrier to each heel. Cover each heel with Optifoam drsg. Change every 7 days and prn. Apply Cavilon skin Barrier Clefts of R and L ear Daily. (Pad Oxygen tubing as needed to prevent PI.) Reposition at least every 2hours or as tolerated. Off-load heels with Pillow. (6) Fecal impaction (7) Infection (8) Hypoxia (9) covid positive Luis Fulton Aug 24, 2020 17:04
--- NOTE | 2020-08-24 19:18 | NUR ---
NURSE HAND-OFF: Important Events on Shift:[]pt. refusing ordered lovenox and optifoam to right ankle Patient Status: stable Diet: regular Pending Orders: na Pending Results/Labs:CBC CMP Pending MD notification:na Latest Vital Signs: Temperature 98.6 , Pulse 77 , B/P 104 /60 , Respiratory Rate 18 , O2 SAT 95 , Room Air, O2 Flow Rate . Vital Sign Comment: stable Latest Liu Fall Score: 55 Fall Risk: High Risk Safety Measures: Call light Within Reach, Bed Alarm Zone 1, Side Rails Side Rails x3, Bed position Low and Locked. Fall Precautions: Door Sign Patient Fall Education Report given to JOYA Marocs.
[2020-08-24 20:00] VITALS: BP 114/68
--- NOTE | 2020-08-24 20:00 | NUR ---
NURSE NOTES: Patient received in bed, aox4, states, "I'm ok" Denies SOB or pain at this time. Call light in reach. Will continue with plan of care.
[2020-08-24] MEDS: Dyna-Hex 2% Top Sol 2oz TOPIC SCH (20:25)
[2020-08-24] MEDS: Miralax 17gm pkt ORAL SCH ×2 (20:59→21:00)
[2020-08-24] MEDS: Azithromycin 500 MG in D5W 275 ML IV SCH (21:00)
[2020-08-24] MEDS: dexAMETHasone 10mg/ml Inj IV SCH (21:00)
--- NOTE | 2020-08-24 21:30 | NUR ---
NURSE NOTES: Dressing changed on right ankle. Dressing changed on right upper arm picc line noted with 7cm of catheter out from site to hub. Both lumen flushes with no problem, but cannot aspirate blood. No swelling on upper arm noted.
[2020-08-24] MEDS: cefTRIAXone 1 GM in D5W 55 ML IVPB SCH (22:35)
[2020-08-25] VITALS: BP 116/69
[2020-08-25 04:00] VITALS: BP 121/78
[2020-08-25] MEDS: Cyclobenzaprine 10mg Tab ORAL SCH ×3 (05:28→21:27)
[2020-08-25] MEDS: Brimonidine 0.2% Opth Sol BOTH EYES SCH ×3 (05:28→21:33)
[2020-08-25 07:29] LABS: BASOPHILS % (AUTO) 0.3 % (0.0-2.0); HEMATOCRIT 44.6 % (42.0-52.0); HEMOGLOBIN 14.3 G/DL (14.2-18.0); LYMPHOCYTES % (AUTO) 12.4 % (20.0-45.0); MEAN CORPUSCULAR VOLUME 71 FL (80-99); MONOCYTES % (AUTO) 6.8 % (1.0-10.0); NEUTROPHILS % (AUTO) 80.4 % (45.0-75.0); PLATELET COUNT 241 K/UL (150-450); RED BLOOD COUNT 6.31 M/UL (4.70-6.10)
[2020-08-25 07:38] LABS: ALANINE AMINOTRANSFERASE 97 U/L (12-78); ALBUMIN 3.5 G/DL (3.4-5.0); ALBUMIN/GLOBULIN RATIO 0.8 (1.0-2.7); ALKALINE PHOSPHATASE 172 U/L (46-116); ANION GAP 9 mmol/L (5-15); ASPARTATE AMINO TRANSFERASE 42 U/L (15-37); BILIRUBIN,TOTAL 0.2 MG/DL (0.2-1.0); BLOOD UREA NITROGEN 11 mg/dL (7-18); CALCIUM 8.8 MG/DL (8.5-10.1); CARBON DIOXIDE 27 MMOL/L (21-32); CHLORIDE 102 MMOL/L (98-107); CREATININE 0.9 MG/DL (0.55-1.30); POTASSIUM 4.4 MMOL/L (3.5-5.1); SODIUM 137 MMOL/L (136-145)
--- NOTE | 2020-08-25 07:49 | NUR ---
NURSE HAND-OFF: Important Events on Shift:[Dressing changed on ankle and PICC line dressing] Patient Status: [stable] Diet: [Reg] Pending Orders: [] Pending Results/Labs:[] Pending MD notification:[] Latest Vital Signs: Temperature 96.9 , Pulse 74 , B/P 121 /78 , Respiratory Rate 18 , O2 SAT 94 , Room Air, O2 Flow Rate . Vital Sign Comment: [] Latest Liu Fall Score: 35 Fall Risk: Medium Risk Safety Measures: Call light Within Reach, Bed Alarm Zone 1, Side Rails Side Rails x3, Bed position Low and Locked. Fall Precautions: Door Sign Patient Fall Education Report given to [Nikole HINSON].
--- NOTE | 2020-08-25 07:50 | NUR ---
NURSE NOTES: Received report from Hemant RN. Patient is awake and oriented, in no apparent distress, RR even and unlabored, patient denies SOB, sitting in bed having breakfast. OMID PICC line dressing clean, dry, intact. Patient updated on plan of care for the day and provided with call light, informed to call RN for any needs. Side rails upx2, bed low and locked, call light within reach.
[2020-08-25 08:00] VITALS: BP 132/81
[2020-08-25] MEDS: Ascorbic Acid 500mg tab ORAL SCH (08:16)
[2020-08-25] MEDS: Dorzolamide 2% 10ml Btl BOTH EYES SCH ×2 (08:17→21:33)
[2020-08-25] MEDS: Enoxaparin 40mg Inj SUBQ SCH (08:29)
--- NOTE | 2020-08-25 08:49 | Nephrology Progress Note ---
Assessment/Plan Plan 1-covid-19 infection per records, + pna/infiltrates 2- ? CAP 3- hx right ankle osteomyelitis, s/p treatment 6 weeks iv vancomycin and cefepime 4-HLD 5. Refusing treatment- refusing Lovenox 6.Glaucoma - continue antibiotics per ID - monitor electrolytes - avoid nephrotoxins - appreciate pulmonary recs Subjective ROS Limited/Unobtainable: No Constitutional: Reports: weakness; Denies: no symptoms, chills, diaphoresis, fever, malaise, other HEENT: Denies: no symptoms, eye pain, blurred vision, tearing, double vision, ear pain, ear discharge, nose pain, nose congestion, throat pain, throat swelling, mouth pain, mouth swelling, other Genitourinary: Denies: no symptoms, burning, discharge, frequency, flank pain, hematuria, incontinence, pain, urgency, other Neurologic/Psychiatric: Denies: no symptoms, anxiety, depressed, emotional problems, headache, numbness, paresthesia, pre-existing deficit, seizure, tingling, tremors, weakness, other Subjective vitals stable refusing medications at times Objective Objective Last 24 Hour Vital Signs Date Time Temp Pulse Resp B/P (MAP) Pulse Ox O2 Delivery O2 Flow Rate FiO2 08/25/20 04:00 96.9 74 18 121/78 (92) 94 08/25/20 00:00 98.2 76 20 116/69 (85) 95 08/24/20 21:00 Room Air 08/24/20 20:00 96.4 86 17 114/68 (83) 93 08/24/20 16:00 98.6 77 18 104/60 (75) 95 08/24/20 12:00 97.9 92 18 110/79 (89) 95 08/24/20 09:00 Room Air Intake and Output 08/24/20 08/25/20 19:00 07:00 Intake Total 600 ml 630 ml Output Total 300 ml 500 ml Balance 300 ml 130 ml Intake Oral 600 ml 300 ml IV Total 330 ml Output Urine Total 300 ml 500 ml Laboratory Tests 08/25/20 05:39: White Blood Count 4.0L, Red Blood Count 6.31H, Hemoglobin 14.3, Hematocrit 44.6, Mean Corpuscular Volume 71L, Mean Corpuscular Hemoglobin 22.7L, Mean Corpuscular Hemoglobin Concent 32.1, Red Cell Distribution Width 14.0, Platelet Count 241, Mean Platelet Volume 7.3, Neutrophils (%) (Auto) 80.4H, Lymphocytes (%) (Auto) 12.4L, Monocytes (%) (Auto) 6.8, Eosinophils (%) (Auto) 0.0, Basophils (%) (Auto) 0.3, Sodium Level 137, Potassium Level 4.4, Chloride Level 102, Carbon Dioxide Level 27, Anion Gap 9, Blood Urea Nitrogen 11, Creatinine 0.9, Estimat Glomerular Filtration Rate > 60, Glucose Level 135H, Calcium Level 8.8, Total Bilirubin 0.2, Aspartate Amino Transf (AST/SGOT) 42H, Alanine Aminotransferase (ALT/SGPT) 97H, Alkaline Phosphatase 172H, Total Protein 8.1, Albumin 3.5, Globulin 4.6, Albumin/Globulin Ratio 0.8L Height (Feet): 6 Height (Inches): 1.00 Weight (Pounds): 216 Guillermo Clay M.D. Aug 25, 2020 08:49
--- NOTE | 2020-08-25 09:29 | NUR ---
NURSE NOTES: PA for Jeremie Webb here to see patient. Provided with update on patient's status, no new orders received.
--- NOTE | 2020-08-25 10:02 | Pulmonology Progress Note ---
Subjective ROS Limited/Unobtainable: No Interval Events: No acute events reported Constitutional: Denies: fever HEENT: Repors: no symptoms Respiratory: Reports: no symptoms Cardiovascular: Reports: no symptoms Gastrointestinal/Abdominal: Reports: other - condom catheter ; Denies: nausea, vomiting, diarrhea Psychiatric: Denies: depression Skin: Denies: rash Musculoskeletal: Denies: pain Allergies: Coded Allergies: No Known Allergies (Unverified , 05/25/20) Objective Last 24 Hour Vital Signs Date Time Temp Pulse Resp B/P (MAP) Pulse Ox O2 Delivery O2 Flow Rate FiO2 08/25/20 08:00 98.6 75 18 132/81 (98) 94 08/25/20 04:00 96.9 74 18 121/78 (92) 94 08/25/20 00:00 98.2 76 20 116/69 (85) 95 08/24/20 21:00 Room Air 08/24/20 20:00 96.4 86 17 114/68 (83) 93 08/24/20 16:00 98.6 77 18 104/60 (75) 95 08/24/20 12:00 97.9 92 18 110/79 (89) 95 Intake and Output 08/24/20 08/25/20 19:00 07:00 Intake Total 600 ml 630 ml Output Total 300 ml 500 ml Balance 300 ml 130 ml Intake Oral 600 ml 300 ml IV Total 330 ml Output Urine Total 300 ml 500 ml Objective 08/25/2020 pt in bed; NAD; normal work of breathing on RA 08/24/2020 pt laying in bed; NAD; normal work of breathing on RA 08/23/2020 pt laying in bed; NAD; normal work of breathing with RA 08/22/2020 pt laying in bed; NAD; saturating 94% on RA General Appearance: no acute distress HEENT: normocephalic Respiratory: chest wall non-tender, crackles/rales Cardiovascular: normal rate, regular rhythm, other - R UA PICC line Skin: other - right medial ankle osteomyelitis Laboratory Tests 08/25/20 05:39: White Blood Count 4.0L, Red Blood Count 6.31H, Hemoglobin 14.3, Hematocrit 44.6, Mean Corpuscular Volume 71L, Mean Corpuscular Hemoglobin 22.7L, Mean Corpuscular Hemoglobin Concent 32.1, Red Cell Distribution Width 14.0, Platelet Count 241, Mean Platelet Volume 7.3, Neutrophils (%) (Auto) 80.4H, Lymphocytes (%) (Auto) 12.4L, Monocytes (%) (Auto) 6.8, Eosinophils (%) (Auto) 0.0, Basophils (%) (Auto) 0.3, Sodium Level 137, Potassium Level 4.4, Chloride Level 102, Carbon Dioxide Level 27, Anion Gap 9, Blood Urea Nitrogen 11, Creatinine 0.9, Estimat Glomerular Filtration Rate > 60, Glucose Level 135H, Calcium Level 8.8, Total Bilirubin 0.2, Aspartate Amino Transf (AST/SGOT) 42H, Alanine Aminotransferase (ALT/SGPT) 97H, Alkaline Phosphatase 172H, Total Protein 8.1, Albumin 3.5, Globulin 4.6, Albumin/Globulin Ratio 0.8L Current Medications Medications (Trade) Dose Ordered Sig/Hector Route PRN Reason Start Time Stop Time Status Last Admin Dose Admin Acetaminophen (Tylenol) 650 mg Q4H PRN ORAL Pain Scale (3-5) 08/21/20 03:15 09/20/20 03:14 08/24/20 21:19 Ascorbic Acid (Vitamin C) 500 mg DAILY ORAL 08/21/20 09:00 09/20/20 08:59 08/25/20 08:16 Azithromycin 500 mg/Dextrose 275 ml @ 275 mls/hr Q24HRS IV 08/21/20 22:00 08/27/20 22:59 08/24/20 21:00 Brimonidine Tartrate (Alphagan) 1 drop Q8HR BOTH EYES 08/22/20 14:00 11/20/20 13:59 08/25/20 05:28 Ceftriaxone Sodium 1 gm/ Dextrose 55 ml @ 110 mls/hr Q24H IVPB 08/21/20 23:00 08/28/20 22:59 08/24/20 22:35 Chlorhexidine Gluconate (Juany-Hex 2%) 1 applic DAILY@2000 TOPIC 08/21/20 20:00 11/19/20 19:59 08/24/20 20:25 Cyclobenzaprine HCl (Flexeril) 10 mg EVERY 8 HOURS ORAL 08/23/20 06:00 08/29/20 20:14 08/25/20 05:28 Dexamethasone Sodium Phosphate (Decadron 10mg/ ml Inj) 10 mg Q24H IV 08/21/20 22:00 08/30/20 21:59 08/24/20 21:00 Diphenhydramine HCl (Benadryl) 25 mg Q6H PRN ORAL Itching 08/22/20 10:45 09/21/20 10:44 08/24/20 21:18 Dorzolamide HCl (Trusopt) 1 drop EVERY 12 HOURS BOTH EYES 08/22/20 11:30 09/21/20 11:29 08/25/20 08:17 Enoxaparin Sodium (Lovenox) 40 mg DAILY SUBQ 08/21/20 09:00 11/19/20 08:59 Gabapentin (Neurontin) 600 mg EVERY 8 HOURS ORAL 08/23/20 06:00 09/21/20 10:44 08/25/20 05:28 Loratadine (Claritin 10mg) 10 mg DAILY ORAL 08/22/20 11:00 09/21/20 10:59 08/25/20 08:16 Polyethylene Glycol (Miralax) 17 gm QHS ORAL 08/22/20 21:45 09/20/20 08:59 08/22/20 22:11 Sodium Phosphate (Fleet's Sodium Phosl Enema) 133 ml DAILY PRN RECTAL Constipation 08/21/20 03:15 09/20/20 03:14 Zolpidem Tartrate (Ambien) 5 mg HSPRN PRN ORAL Insomnia 08/22/20 10:45 08/29/20 10:44 08/23/20 22:27 Assessment/Plan Assessment/Plan 1. Dyspnea. - Now saturating 94% on RA; pt appears comfortable in bed - Pt tested positive for COVID-19 at his nursing facility - COVID-19 PCR test positive 08/20/2020 - Hold off on decadron given lack of hypoxemia 2. High suspicion for pneumonia. - 08/21/2020 CXR b/l basilar atelectasis - Hx of fever; currently afebrile - Recommend broad-spectrum Abx 3. Paraplegia. 4. Osteomyelitis in right medial ankle - per wound care team 5. Chronic tobacco usage. DVT ppx - pt refusing lovenox; counseled on the need for and risks of declining lovenox; pt states he "doesn't need it" - venous duplex pending - Pt denies CP, SOB - on SCD 6. Elevated LFT 08/25/2020 - AST 34 -> 42 - ALT 53 -> 97 - Cont monitor We will follow carefully. The care for this patient was discussed with my supervising physician Time spent for this case was approximately 31 minutes The history of Maurisio Cabrera has been reviewed and management options for him have been examined and discussed by Hudson Bhatti. I have personally examined and interviewed the patient. Fei De Santiago Aug 25, 2020 10:02 Hudson Bhatti MD Aug 25, 2020 16:27
[2020-08-25 12:00] VITALS: BP 153/91
[2020-08-25] MEDS ORDERED: AUGMENTIN 875-1 EAC1 ORAL (12:01)
[2020-08-25] MEDS ORDERED: DECADRON6 MG PO (12:03)
--- NOTE | 2020-08-25 12:27 | NUR ---
*-*DISCHARGE PLANNING*-* PATIENT HAS BEEN REFERRED BACK TO: [facility] P: [phone] S/W FERNANDO, FRANCISCO , JOANNE IN ADMISSIONS IS ON LUNCH BREAK, CALL BACK IN 20 MINS.
--- NOTE | 2020-08-25 13:16 | NUR ---
*-*DISCHARGE PLANNING*-* PATIENT HAS BEEN REFERRED BACK TO: [facility]/ [facility] P: [phone] S/W ABRAHAN, WILL REFERRED TO [facility] , WILL CALL BACK IF ROOM# IS AVAILABLE
--- NOTE | 2020-08-25 13:18 | NUR ---
*-*DISCHARGE PLANNING*-* PATIENT HAS BEEN REFERRED BACK TO: [facility]/ [facility] P: [phone] S/W ABRAHAN, WILL REFERRED TO [facility] , WILL CALL BACK IF ROOM# IS AVAILABLE VENK[facility]LLSW[facility] P: [phone] NADYA RUBIO, HAVE TO DUE ROOM CHANGE AND MAKE SPACE FOR NEW ADMISSION, WILL CALL BACK IF ROOM IS AVAILABLE.
--- NOTE | 2020-08-25 14:56 | Surgery Progress Note ---
Surgery Progress Note Subjective Symptoms: improved, tolerating diet, passing flatus Objective Last 24 Hour Vital Signs Date Time Temp Pulse Resp B/P (MAP) Pulse Ox O2 Delivery O2 Flow Rate FiO2 08/25/20 12:00 98.1 83 18 153/91 (111) 95 08/25/20 09:00 Room Air 08/25/20 08:00 98.6 75 18 132/81 (98) 94 08/25/20 04:00 96.9 74 18 121/78 (92) 94 08/25/20 00:00 98.2 76 20 116/69 (85) 95 08/24/20 21:00 Room Air 08/24/20 20:00 96.4 86 17 114/68 (83) 93 08/24/20 16:00 98.6 77 18 104/60 (75) 95 I&O Intake and Output 08/24/20 08/25/20 19:00 07:00 Intake Total 600 ml 630 ml Output Total 300 ml 500 ml Balance 300 ml 130 ml Intake Oral 600 ml 300 ml IV Total 330 ml Output Urine Total 300 ml 500 ml Dressing: saturated Cardiovascular: RSR Respiratory: decreased breath sounds Abdomen: non-tender, present bowel sounds Extremities: no edema, no tenderness, no cyanosis Laboratory Tests Test 08/25/20 05:39 White Blood Count 4.0 K/UL (4.8-10.8) L Red Blood Count 6.31 M/UL (4.70-6.10) H Hemoglobin 14.3 G/DL (14.2-18.0) Hematocrit 44.6 % (42.0-52.0) Mean Corpuscular Volume 71 FL (80-99) L Mean Corpuscular Hemoglobin 22.7 PG (27.0-31.0) L Mean Corpuscular Hemoglobin Concent 32.1 G/DL (32.0-36.0) Red Cell Distribution Width 14.0 % (11.6-14.8) Platelet Count 241 K/UL (150-450) Mean Platelet Volume 7.3 FL (6.5-10.1) Neutrophils (%) (Auto) 80.4 % (45.0-75.0) H Lymphocytes (%) (Auto) 12.4 % (20.0-45.0) L Monocytes (%) (Auto) 6.8 % (1.0-10.0) Eosinophils (%) (Auto) 0.0 % (0.0-3.0) Basophils (%) (Auto) 0.3 % (0.0-2.0) Sodium Level 137 MMOL/L (136-145) Potassium Level 4.4 MMOL/L (3.5-5.1) Chloride Level 102 MMOL/L (98-107) Carbon Dioxide Level 27 MMOL/L (21-32) Anion Gap 9 mmol/L (5-15) Blood Urea Nitrogen 11 mg/dL (7-18) Creatinine 0.9 MG/DL (0.55-1.30) Estimat Glomerular Filtration Rate > 60 mL/min (>60) Glucose Level 135 MG/DL (74-106) H Calcium Level 8.8 MG/DL (8.5-10.1) Total Bilirubin 0.2 MG/DL (0.2-1.0) Aspartate Amino Transf (AST/SGOT) 42 U/L (15-37) H Alanine Aminotransferase (ALT/SGPT) 97 U/L (12-78) H Alkaline Phosphatase 172 U/L (46-116) H Total Protein 8.1 G/DL (6.4-8.2) Albumin 3.5 G/DL (3.4-5.0) Globulin 4.6 g/dL Albumin/Globulin Ratio 0.8 (1.0-2.7) L Plan Problems: (1) Dyspnea (2) Fever (3) Suspected 2019-nCoV infection (4) Constipation (5) Cellulitis Assessment & Plan: Pt presented on admission with Full Thickness Ulcer lateral R Malleolus(L)1.5cm x (W)1cm.Base of wound is hypergranular with dry brown bord ers . No odor or exudate noted. No elevation in skin temp, erythema ,induration or fluctuance periwound. Pt informed staff wound resulted from hitting his foot against his w/c. Sacrum, heels and all bony prominences assessed. No other skin concerns noted. Tx.Plan:Cleanse wound R Lateral Malleolus with Saline. Apply Therahoney. Apply Cavilon Skin Barrier Periwound. Cover with Optifoam drsg. Change every 3 days and prn. Apply Moisture Barrier Paste to Sacrum. Cover with Optifoam drsg. Change every 3 days and prn. Apply Cavilon Skin Barrier to each heel. Cover each heel with Optifoam drsg. Change every 7 days and prn. Apply Cavilon skin Barrier Clefts of R and L ear Daily. (Pad Oxygen tubing as needed to prevent PI.) Reposition at least every 2hours or as tolerated. Off-load heels with Pillow. (6) Fecal impaction (7) Infection (8) Hypoxia (9) covid positive Luis Fulton Aug 25, 2020 14:56
[2020-08-25 16:00] VITALS: BP 142/81
--- NOTE | 2020-08-25 17:17 | NUR ---
*-*DISCHARGE PLANNING*-* PATIENT HAS BEEN REFERRED BACK TO: [facility]/ [facility] P: [phone] S/W ABRAHAN, WILL REFERRED TO [facility] , WILL CALL BACK IF ROOM# IS AVAILABLE [facility] P: [phone] NADYA RUBIO, HAVE TO DUE ROOM CHANGE AND MAKE SPACE FOR NEW ADMISSION, WILL CALL BACK WHEN ROOM IS AVAILABLE.
--- NOTE | 2020-08-25 17:50 | Discharge Summary ---
Discharge Summary Hospital Course Date of Admission Aug 20, 2020 at 23:02 Date of Discharge Admitting Diagnosis HYPOXIA, COVID POSITIVE HPI Maurisio Cabrera is a 64 year old male who was admitted on Aug 20, 2020 at 23:02 for Hypoxia,Covid Positive Hospital Course PHYSICAL EXAM GENERAL: No acute distress, bedbound, biplegic HEENT: EOMI RESP: clear to auscultation CARDIAC: Regular rate and rhythm ABDOMEN: soft, non-tender NEURO: CN II-XII grossly intact Patient was admitted for concern for CAP and was noted to be positive for Covid 19 on 08/20. Patient was treated with Decadron per guidance from ID as well as for CAP with Azithromycin and Ceftriaxone. Patient is to complete 10d treatment course of Decardron and Continue on Augmentin for an additonal 4 days. Per ID there was no indication for Remdesivir. His respiratory status improved and he is currently on RA. He is s/p 6 weeks of treatment with IV vancomycin and cefepime for right ankle osteomyelitis. Discharge Condition Upon Discharge: stable Discharge Vital Signs Last Vital Signs Date Time Temp Pulse Resp B/P (MAP) Pulse Ox O2 Delivery O2 Flow Rate FiO2 08/25/20 16:00 98.1 72 18 142/81 (101) 96 08/25/20 09:00 Room Air 08/21/20 01:45 95 Discharge Disposition Patient was discharged to Valerie Lundberg M.D. Aug 25, 2020 17:50
--- NOTE | 2020-08-25 19:20 | NUR ---
NURSE HAND-OFF: Important Events on Shift: pending discharge Patient Status: stable Diet: Regular Pending Orders: discharge pending bed placement Pending Results/Labs: N/A Pending MD notification: N/A Latest Vital Signs: Temperature 98.1 , Pulse 72 , B/P 142 /81 , Respiratory Rate 18 , O2 SAT 96 , Room Air. Vital Sign Comment: VS stable Latest Liu Fall Score: 35 Fall Risk: Medium Risk Safety Measures: Call light Within Reach, Bed Alarm Zone 1, Side Rails Side Rails x3, Bed position Low and Locked. Fall Precautions: Door Sign Patient Fall Education Report given to Willa HINSON.
[2020-08-25 20:00] VITALS: BP 108/65
--- NOTE | 2020-08-25 20:30 | NUR ---
NURSES NOTE: Received report from JOYA Gonzalez. Rounds made. Pt in bed, A/OX4, denies pain. No outward s/s of distress noted. Breathing is even and unlabored on RA. OMID PICC noted. Dressing last changed 08/24. Condom cath in place, draining to collecting bag via gravity. Wound to the sacrum area to be changed Q3 days. Last changed 08/24 as well. Patient to be turned Q2H. All due medications will be administered. Pending discharge 08/26. Bed at lowest level. call light within reach. Pt will continue to be monitored.
[2020-08-25] MEDS: Azithromycin 500 MG in D5W 275 ML IV SCH (21:26)
[2020-08-25] MEDS: Miralax 17gm pkt ORAL SCH (21:27)
[2020-08-25] MEDS: Dyna-Hex 2% Top Sol 2oz TOPIC SCH (21:27)
[2020-08-25] MEDS: dexAMETHasone 10mg/ml Inj IV SCH (21:27)
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
[2020-08-25] MEDS: Augmentin 875mg Tab ORAL SCH (23:48)
[2020-08-26] VITALS: BP 126/95
[2020-08-26 04:00] VITALS: BP 122/69
[2020-08-26] MEDS: Cyclobenzaprine 10mg Tab ORAL SCH ×3 (06:03→21:38)
[2020-08-26] MEDS: Brimonidine 0.2% Opth Sol BOTH EYES SCH ×3 (06:06→21:39)
--- NOTE | 2020-08-26 07:28 | NUR ---
NURSE HAND-OFF: Important Events on Shift:[Large BM] Patient Status: [Stable] Diet: [Regular] Pending Orders: [None] Pending Results/Labs:[None] Pending MD notification:[None] Latest Vital Signs: Temperature 97.2 , Pulse 88 , B/P 122 /69 , Respiratory Rate 19 , O2 SAT 96 , Room Air, O2 Flow Rate . Vital Sign Comment: [WNL] Latest Liu Fall Score: 35 Fall Risk: Medium Risk Safety Measures: Call light Within Reach, Bed Alarm Zone 1, Side Rails Side Rails x3, Bed position Low and Locked. Fall Precautions: Door Sign Patient Fall Education Report given to [Thomas, RN].
--- NOTE | 2020-08-26 07:36 | NUR ---
NURSE NOTES: Report received from JOYA Castro. Pt awake in bed, alert and oriented x 4, no SOB, no s/sx of discomfort at this time, bed in lowest position with breaks engaged and alarm on, on droplet and contact isolation for COVID, PICC line on OMID with dressing in place, dry and intact, will continue to monitor and proceed with plan of care, call light within reach
[2020-08-26 08:00] VITALS: BP 117/73
[2020-08-26] MEDS: Enoxaparin 40mg Inj SUBQ SCH ×2 (09:00→09:26)
[2020-08-26] MEDS: Augmentin 875mg Tab ORAL SCH ×2 (09:16→20:59)
[2020-08-26] MEDS: Dorzolamide 2% 10ml Btl BOTH EYES SCH ×2 (09:16→21:39)
[2020-08-26] MEDS: Ascorbic Acid 500mg tab ORAL SCH (09:16)
--- NOTE | 2020-08-26 09:46 | Pulmonology Progress Note ---
Subjective ROS Limited/Unobtainable: No Interval Events: No acute events reported Constitutional: Denies: fever HEENT: Repors: no symptoms Respiratory: Reports: no symptoms Cardiovascular: Reports: no symptoms Gastrointestinal/Abdominal: Denies: nausea, vomiting, diarrhea Psychiatric: Denies: depression Skin: Denies: rash Musculoskeletal: Denies: pain Allergies: Coded Allergies: No Known Allergies (Unverified , 05/25/20) Objective Last 24 Hour Vital Signs Date Time Temp Pulse Resp B/P (MAP) Pulse Ox O2 Delivery O2 Flow Rate FiO2 08/26/20 04:00 97.2 88 19 122/69 (86) 96 08/26/20 00:00 98.8 75 19 126/95 (105) 96 08/25/20 21:00 Room Air 08/25/20 20:00 97.8 86 17 108/65 (79) 94 08/25/20 16:00 98.1 72 18 142/81 (101) 96 08/25/20 12:00 98.1 83 18 153/91 (111) 95 Intake and Output 08/25/20 08/26/20 19:00 07:00 Intake Total 500 ml 420 ml Output Total 1700 ml Balance 500 ml -1280 ml Intake Oral 420 ml Other 500 ml Output Urine Total 1700 ml # Bowel Movements 1 Objective 08/26/2020 NAD; discharge pending bed placement 08/25/2020 pt in bed; NAD; normal work of breathing on RA 08/24/2020 pt laying in bed; NAD; normal work of breathing on RA 08/23/2020 pt laying in bed; NAD; normal work of breathing with RA 08/22/2020 pt laying in bed; NAD; saturating 94% on RA General Appearance: no acute distress HEENT: normocephalic Respiratory: chest wall non-tender Cardiovascular: normal rate, regular rhythm, other - OMID PICC line Skin: other - right medial ankle wound care Current Medications Medications (Trade) Dose Ordered Sig/Hector Route PRN Reason Start Time Stop Time Status Last Admin Dose Admin Acetaminophen (Tylenol) 650 mg Q4H PRN ORAL Pain Scale (3-5) 08/21/20 03:15 09/20/20 03:14 08/24/20 21:19 Amoxicillin/ Clavulanate Potassium (Augmentin) 875 mg Q12HR ORAL 08/25/20 22:45 09/01/20 22:44 08/26/20 09:16 Ascorbic Acid (Vitamin C) 500 mg DAILY ORAL 08/21/20 09:00 09/20/20 08:59 08/26/20 09:16 Brimonidine Tartrate (Alphagan) 1 drop Q8HR BOTH EYES 08/22/20 14:00 11/20/20 13:59 08/26/20 06:06 Chlorhexidine Gluconate (Juany-Hex 2%) 1 applic DAILY@2000 TOPIC 08/21/20 20:00 11/19/20 19:59 08/25/20 21:27 Cyclobenzaprine HCl (Flexeril) 10 mg EVERY 8 HOURS ORAL 08/23/20 06:00 08/29/20 20:14 08/26/20 06:03 Dexamethasone Sodium Phosphate (Decadron 10mg/ ml Inj) 10 mg Q24H IV 08/21/20 22:00 08/30/20 21:59 08/25/20 21:27 Diphenhydramine HCl (Benadryl) 25 mg Q6H PRN ORAL Itching 08/22/20 10:45 09/21/20 10:44 08/24/20 21:18 Dorzolamide HCl (Trusopt) 1 drop EVERY 12 HOURS BOTH EYES 08/22/20 11:30 09/21/20 11:29 08/26/20 09:16 Enoxaparin Sodium (Lovenox) 40 mg DAILY SUBQ 08/21/20 09:00 11/19/20 08:59 Gabapentin (Neurontin) 600 mg EVERY 8 HOURS ORAL 08/23/20 06:00 09/21/20 10:44 08/26/20 06:03 Loratadine (Claritin 10mg) 10 mg DAILY ORAL 08/22/20 11:00 09/21/20 10:59 08/26/20 09:16 Polyethylene Glycol (Miralax) 17 gm QHS ORAL 08/22/20 21:45 09/20/20 08:59 08/25/20 21:27 Sodium Phosphate (Fleet's Sodium Phosl Enema) 133 ml DAILY PRN RECTAL Constipation 08/21/20 03:15 09/20/20 03:14 Zolpidem Tartrate (Ambien) 5 mg HSPRN PRN ORAL Insomnia 08/22/20 10:45 08/29/20 10:44 08/23/20 22:27 Assessment/Plan Assessment/Plan 1. Dyspnea. - Now saturating 96% on RA; pt appears comfortable in bed - Pt tested positive for COVID-19 at his nursing facility - COVID-19 PCR test positive 08/20/2020 - on dexamethasone per Dr. Clay 2. High suspicion for pneumonia. - 08/21/2020 CXR b/l basilar atelectasis - Hx of fever; currently afebrile - Recommend broad-spectrum Abx 3. Paraplegia. 4. Osteomyelitis in right medial ankle - per wound care team 5. Chronic tobacco usage. DVT ppx - pt refusing lovenox; counseled on the need for and risks of declining lovenox; pt states he "doesn't need it" - Pt denies CP, SOB - on SCD 6. Elevated LFT 08/25/2020 - AST 34 -> 42 - ALT 53 -> 97 - Cont monitor discharge pending bed placement The care for this patient was discussed with my supervising physician Time spent for this case was approximately 31 minutesThe patient was seen and examined at bedside and all new and available data was reviewed in the patients chart. I agree with the above findings, impression, and plan. (Patient was seen earlier today. Signature timestamp does not reflect patient encounter time) Fei Harvey MD Aug 26, 2020 09:46 Hudson Bhatti MD Aug 26, 2020 17:34
[2020-08-26 12:00] VITALS: BP 132/87
--- NOTE | 2020-08-26 13:20 | Nephrology Progress Note ---
Assessment/Plan Plan 1-covid-19 infection per records, + pna/infiltrates 2- ? CAP 3- hx right ankle osteomyelitis, s/p treatment 6 weeks iv vancomycin and cefepime 4-HLD 5. Refusing treatment- refusing Lovenox 6.Glaucoma - continue antibiotics per ID - monitor electrolytes - avoid nephrotoxins - appreciate pulmonary recs Subjective ROS Limited/Unobtainable: No Constitutional: Reports: weakness HEENT: Denies: no symptoms, eye pain, blurred vision, tearing, double vision, ear pain, ear discharge, nose pain, nose congestion, throat pain, throat swelling, mouth pain, mouth swelling, other Genitourinary: Denies: no symptoms, burning, discharge, frequency, flank pain, hematuria, incontinence, pain, urgency, other Neurologic/Psychiatric: Denies: no symptoms, anxiety, depressed, emotional problems, headache, numbness, paresthesia, pre-existing deficit, seizure, tingling, tremors, weakness, other Subjective vitals stable refusing medications at times Objective Objective Last 24 Hour Vital Signs Date Time Temp Pulse Resp B/P (MAP) Pulse Ox O2 Delivery O2 Flow Rate FiO2 08/26/20 12:00 97.7 83 18 132/87 (102) 95 08/26/20 09:00 Room Air 08/26/20 08:00 97.9 86 17 117/73 (88) 94 08/26/20 04:00 97.2 88 19 122/69 (86) 96 08/26/20 00:00 98.8 75 19 126/95 (105) 96 08/25/20 21:00 Room Air 08/25/20 20:00 97.8 86 17 108/65 (79) 94 08/25/20 16:00 98.1 72 18 142/81 (101) 96 Intake and Output 08/25/20 08/26/20 19:00 07:00 Intake Total 500 ml 420 ml Output Total 1700 ml Balance 500 ml -1280 ml Intake Oral 420 ml Other 500 ml Output Urine Total 1700 ml # Bowel Movements 1 Height (Feet): 6 Height (Inches): 1.00 Weight (Pounds): 216 Guillermo Clay M.D. Aug 26, 2020 13:20
--- NOTE | 2020-08-26 15:24 | NUR ---
*-*DISCHARGE PLANNING*-* PATIENT HAS BEEN REFERRED BACK TO: [facility] P: [phone] S/W ABRAHAN, NO COVID BED AVAILABLE [facility] P: [phone] NADYA RUBIO, HAVE TO DUE ROOM CHANGE AND MAKE SPACE FOR NEW ADMISSION, WILL CALL BACK WHEN ROOM IS AVAILABLE. NO ROOM# AVAILABLE
--- NOTE | 2020-08-26 15:27 | NUR ---
*-*DISCHARGE PLANNING*-* PATIWENT HAS BEEN REFERRED TO: [facility]/ [facility] P: [phone]
[2020-08-26 16:00] VITALS: BP 130/93
--- NOTE | 2020-08-26 17:03 | NUR ---
CASE MANAGEMENT:REVIEW SI;COVID PNEUMONIA 98.8 86 19 132/87 94% ON RA IS;AUGMENTIN PO Q12 DECADRON IV Q24 LOVENOX SQ QD VIT C PO QD LORATADINE PO QD MED SURG STATUS DCP;FROM [facility] INTERMEDIATE PLAN; COVID POSITIVE SNF ACTIVELY SEEKING PLACEMENT
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
--- NOTE | 2020-08-26 19:25 | NUR ---
NURSE HAND-OFF: Important Events on Shift:[safety and comfort, PO ATBS, ] Patient Status: [stable] Diet: [regular] Pending Orders: [] Pending Results/Labs:[] Pending MD notification:[] Latest Vital Signs: Temperature 97.3 , Pulse 74 , B/P 130 /93 , Respiratory Rate 18 , O2 SAT 94 , Room Air, O2 Flow Rate . Vital Sign Comment: [] Latest Liu Fall Score: 35 Fall Risk: Medium Risk Safety Measures: Call light Within Reach, Bed Alarm Zone 1, Side Rails Side Rails x3, Bed position Low and Locked. Fall Precautions: Door Sign Patient Fall Education Report given to [JOYA Vela].
--- NOTE | 2020-08-26 19:27 | NUR ---
NURSE NOTES: Report received from JOYA Samuel. Pt is awake in bed, alert and oriented x 4, no SOB, no s/sx of discomfort at this time except slight neuropathic pain, Assisted pt in changing his position. Bed is locked, in lowest position, bed alarm on, on droplet and contact isolation for COVID, PICC line on OMID with dressing in place, clean dry and intact, will continue to monitor and proceed with plan of care, call light is within reach
[2020-08-26 20:00] VITALS: BP 121/71
[2020-08-26] MEDS: Miralax 17gm pkt ORAL SCH (20:59)
[2020-08-26] MEDS: Dyna-Hex 2% Top Sol 2oz TOPIC SCH (20:59)
[2020-08-26] MEDS: dexAMETHasone 10mg/ml Inj IV SCH (21:39)
[2020-08-27] VITALS: BP 122/79
[2020-08-27 04:00] VITALS: BP 107/66
[2020-08-27] MEDS: Cyclobenzaprine 10mg Tab ORAL SCH ×2 (06:16→13:46)
[2020-08-27] MEDS: Brimonidine 0.2% Opth Sol BOTH EYES SCH ×2 (06:16→13:46)
--- NOTE | 2020-08-27 07:40 | NUR ---
NURSE HAND-OFF: Important Events on Shift:[safety and comfort, reposition offload pressure Patient Status: [stable] Diet: [regular] Pending Orders: no new labs Latest Liu Fall Score: 35 Fall Risk: Medium Risk Safety Measures: Call light Within Reach, Bed Alarm Zone 1, Side Rails Side Rails x3, Bed position Low and Locked. Fall Precautions: Door Sign Patient Fall Education Report given to Lizzie HINSON
--- NOTE | 2020-08-27 07:53 | NUR ---
NURSE NOTES: Report received from JOYA Vela. Pt awake in bed, alert and oriented x 4, no shortness of breath, no s/sx of discomfort at this time, bed in lowest position with breaks engaged and alarm on, on droplet and contact isolation for COVID, PICC line on OMID with dressing in place, dry and intact, will continue to monitor and proceed with plan of care, call light within reach
[2020-08-27 08:00] VITALS: BP 136/60
[2020-08-27] MEDS: Enoxaparin 40mg Inj SUBQ SCH (09:00)
[2020-08-27] MEDS: Augmentin 875mg Tab ORAL SCH (09:02)
[2020-08-27] MEDS: Ascorbic Acid 500mg tab ORAL SCH (09:02)
[2020-08-27] MEDS: Dorzolamide 2% 10ml Btl BOTH EYES SCH (09:02)
--- NOTE | 2020-08-27 09:46 | Nephrology Progress Note ---
Assessment/Plan Plan 1-covid-19 infection per records, + pna/infiltrates 2- ? CAP 3- hx right ankle osteomyelitis, s/p treatment 6 weeks iv vancomycin and cefepime 4-HLD 5. Refusing treatment- refusing Lovenox 6.Glaucoma - continue antibiotics per ID - monitor electrolytes - avoid nephrotoxins - appreciate pulmonary recs Subjective ROS Limited/Unobtainable: No Constitutional: Reports: weakness HEENT: Denies: no symptoms, eye pain, blurred vision, tearing, double vision, ear pain, ear discharge, nose pain, nose congestion, throat pain, throat swelling, mouth pain, mouth swelling, other Genitourinary: Denies: no symptoms, burning, discharge, frequency, flank pain, hematuria, incontinence, pain, urgency, other Neurologic/Psychiatric: Denies: no symptoms, anxiety, depressed, emotional problems, headache, numbness, paresthesia, pre-existing deficit, seizure, tingling, tremors, weakness, other Subjective vitals stable refusing medications at times Objective Objective Last 24 Hour Vital Signs Date Time Temp Pulse Resp B/P (MAP) Pulse Ox O2 Delivery O2 Flow Rate FiO2 08/27/20 08:00 98.2 79 17 136/60 (85) 97 08/27/20 04:00 98.3 79 17 107/66 (80) 95 08/27/20 00:00 97.5 80 18 122/79 (93) 93 08/26/20 21:00 Room Air 08/26/20 20:00 97.9 75 18 121/71 (88) 93 08/26/20 16:00 97.3 74 18 130/93 (105) 94 08/26/20 12:00 97.7 83 18 132/87 (102) 95 Intake and Output 08/26/20 08/27/20 19:00 07:00 Intake Total 720 ml 400 ml Output Total 1150 ml 1300 ml Balance -430 ml -900 ml Intake Oral 720 ml Other 400 ml Output Urine Total 1150 ml 1300 ml Height (Feet): 6 Height (Inches): 1.00 Weight (Pounds): 216 Guillermo Clay M.D. Aug 27, 2020 09:46
[2020-08-27 12:00] VITALS: BP 136/79
--- NOTE | 2020-08-27 12:33 | Pulmonology Progress Note ---
Subjective ROS Limited/Unobtainable: No Interval Events: No acute events reported Constitutional: Denies: fever HEENT: Repors: no symptoms Respiratory: Reports: no symptoms Cardiovascular: Reports: no symptoms Gastrointestinal/Abdominal: Denies: nausea, vomiting, diarrhea Psychiatric: Denies: depression Skin: Denies: rash Musculoskeletal: Denies: pain Allergies: Coded Allergies: No Known Allergies (Unverified , 05/25/20) Objective Last 24 Hour Vital Signs Date Time Temp Pulse Resp B/P (MAP) Pulse Ox O2 Delivery O2 Flow Rate FiO2 08/27/20 12:00 98.2 78 17 136/79 (98) 94 08/27/20 09:00 Room Air 08/27/20 08:00 98.2 79 17 136/60 (85) 97 08/27/20 04:00 98.3 79 17 107/66 (80) 95 08/27/20 00:00 97.5 80 18 122/79 (93) 93 08/26/20 21:00 Room Air 08/26/20 20:00 97.9 75 18 121/71 (88) 93 08/26/20 16:00 97.3 74 18 130/93 (105) 94 Intake and Output 08/26/20 08/27/20 19:00 07:00 Intake Total 720 ml 400 ml Output Total 1150 ml 1300 ml Balance -430 ml -900 ml Intake Oral 720 ml Other 400 ml Output Urine Total 1150 ml 1300 ml Objective 08/27/2020 Case management actively seeking bed placement; NAD; pt continues to complain of missing home medication (eye drop that [facility] every night); latanoprost ordered 08/26/2020 NAD; discharge pending bed placement 08/25/2020 pt in bed; NAD; normal work of breathing on RA 08/24/2020 pt laying in bed; NAD; normal work of breathing on RA 08/23/2020 pt laying in bed; NAD; normal work of breathing with RA 08/22/2020 pt laying in bed; NAD; saturating 94% on RA General Appearance: no acute distress HEENT: normocephalic Respiratory: chest wall non-tender Cardiovascular: normal rate, regular rhythm, other - OMID PICC line Skin: other - right medial ankle wound care Current Medications Medications (Trade) Dose Ordered Sig/Hector Route PRN Reason Start Time Stop Time Status Last Admin Dose Admin Acetaminophen (Tylenol) 650 mg Q4H PRN ORAL Pain Scale (3-5) 08/21/20 03:15 09/20/20 03:14 08/24/20 21:19 Amoxicillin/ Clavulanate Potassium (Augmentin) 875 mg Q12HR ORAL 08/25/20 22:45 09/01/20 22:44 08/27/20 09:02 Ascorbic Acid (Vitamin C) 500 mg DAILY ORAL 08/21/20 09:00 09/20/20 08:59 08/27/20 09:02 Brimonidine Tartrate (Alphagan) 1 drop Q8HR BOTH EYES 08/22/20 14:00 11/20/20 13:59 08/27/20 06:16 Chlorhexidine Gluconate (Juany-Hex 2%) 1 applic DAILY@1999 TOPIC 08/21/20 20:00 11/19/20 19:59 08/26/20 20:59 Cyclobenzaprine HCl (Flexeril) 10 mg EVERY 8 HOURS ORAL 08/23/20 06:00 08/29/20 20:14 08/27/20 06:16 Dexamethasone Sodium Phosphate (Decadron 10mg/ ml Inj) 10 mg Q24H IV 08/21/20 22:00 08/30/20 21:59 08/26/20 21:39 Diphenhydramine HCl (Benadryl) 25 mg Q6H PRN ORAL Itching 08/22/20 10:45 09/21/20 10:44 08/24/20 21:18 Dorzolamide HCl (Trusopt) 1 drop EVERY 12 HOURS BOTH EYES 08/22/20 11:30 09/21/20 11:29 08/27/20 09:02 Enoxaparin Sodium (Lovenox) 40 mg DAILY SUBQ 08/21/20 09:00 11/19/20 08:59 Gabapentin (Neurontin) 600 mg EVERY 8 HOURS ORAL 08/23/20 06:00 09/21/20 10:44 08/27/20 06:16 Loratadine (Claritin 10mg) 10 mg DAILY ORAL 08/22/20 11:00 09/21/20 10:59 08/27/20 09:02 Polyethylene Glycol (Miralax) 17 gm QHS ORAL 08/22/20 21:45 09/20/20 08:59 08/26/20 20:59 Sodium Phosphate (Fleet's Sodium Phosl Enema) 133 ml DAILY PRN RECTAL Constipation 08/21/20 03:15 09/20/20 03:14 Zolpidem Tartrate (Ambien) 5 mg HSPRN PRN ORAL Insomnia 08/22/20 10:45 08/29/20 10:44 08/23/20 22:27 Assessment/Plan Assessment/Plan 1. Dyspnea. -Saturating well on room air - Pt tested positive for COVID-19 at his nursing facility; unclear date - COVID-19 PCR test positive 08/20/2020 - on dexamethasone per Dr. Clay 2. High suspicion for pneumonia. - 08/21/2020 CXR b/l basilar atelectasis - Hx of fever; currently afebrile - Recommend broad-spectrum Abx 3. Paraplegia. 4. Osteomyelitis in right medial ankle - per wound care team 5. Chronic tobacco usage. DVT ppx - pt refusing lovenox; counseled on the need for and risks of declining lovenox; pt states he "doesn't need it" - Pt denies CP, SOB - on SCD 6. Elevated LFT 08/25/2020 - AST 34 -> 42 - ALT 53 -> 97 - Cont monitor discharge pending bed placement The care for this patient was discussed with my supervising physician Time spent for this case was approximately 31 minutes The patient was seen and examined at bedside and all new and available data was reviewed in the patients chart. I agree with the above findings, impression, and plan. (Patient was seen earlier today. Signature timestamp does not reflect patient encounter time) Fei Harvey MD Aug 27, 2020 12:33 Hudson Bhatti MD Aug 27, 2020 18:03
--- NOTE | 2020-08-27 14:46 | Surgery Progress Note ---
Surgery Progress Note Subjective Symptoms: improved, tolerating diet, passing flatus Objective Last 24 Hour Vital Signs Date Time Temp Pulse Resp B/P (MAP) Pulse Ox O2 Delivery O2 Flow Rate FiO2 08/27/20 12:00 98.2 78 17 136/79 (98) 94 08/27/20 09:00 Room Air 08/27/20 08:00 98.2 79 17 136/60 (85) 97 08/27/20 04:00 98.3 79 17 107/66 (80) 95 08/27/20 00:00 97.5 80 18 122/79 (93) 93 08/26/20 21:00 Room Air 08/26/20 20:00 97.9 75 18 121/71 (88) 93 08/26/20 16:00 97.3 74 18 130/93 (105) 94 I&O Intake and Output 08/26/20 08/27/20 19:00 07:00 Intake Total 720 ml 400 ml Output Total 1150 ml 1300 ml Balance -430 ml -900 ml Intake Oral 720 ml Other 400 ml Output Urine Total 1150 ml 1300 ml Dressing: saturated Cardiovascular: RSR Respiratory: decreased breath sounds Abdomen: non-tender, present bowel sounds Extremities: no tenderness, no cyanosis Plan Problems: (1) Dyspnea (2) Fever (3) Suspected 2019-nCoV infection (4) Constipation (5) Cellulitis Assessment & Plan: Pt presented on admission with Full Thickness Ulcer lateral R Malleolus(L)1.5cm x (W)1cm.Base of wound is hypergranular with dry brown borders . No odor or exudate noted. No elevation in skin temp, erythema ,induration or fluctuance periwound. Pt informed staff wound resulted from hitting his foot against his w/c. Sacrum, heels and all bony prominences assessed. No other skin concerns noted. Tx.Plan:Cleanse wound R Lateral Malleolus with Saline. Apply Therahoney. Apply Cavilon Skin Barrier Periwound. Cover with Optifoam drsg. Change every 3 days and prn. Apply Moisture Barrier Paste to Sacrum. Cover with Optifoam drsg. Change every 3 days and prn. Apply Cavilon Skin Barrier to each heel. Cover each heel with Optifoam drsg. Change every 7 days and prn. Apply Cavilon skin Barrier Clefts of R and L ear Daily. (Pad Oxygen tubing as needed to prevent PI.) Reposition at least every 2hours or as tolerated. Off-load heels with Pillow. (6) Fecal impaction (7) Infection (8) Hypoxia (9) covid positive Luis Fulton Aug 27, 2020 14:46
[2020-08-27 16:00] VITALS: BP 131/81
--- NOTE | 2020-08-27 16:27 | NUR ---
*-*DISCHARGE PLANNED*-* PATIENT HAS BEEN ACCEPTED AND WILL BE DISCHARGED TO: [facility] P: [phone] FOR NURSE TO NURSE REPORT ROOM# 15.A [facility] SET FOR 5:30PM S/W ALAN [id number]. S/W PATIENTS EX EUGENIO CROW, WHO IS IN AGREEMENT WITH DISCHARGE PLAN.
--- NOTE | 2020-08-27 18:24 | General Progress Note ---
Subjective Date patient seen: Aug 27, 2020 Time patient seen: 17:45 Constitutional: Denies: no symptoms, chills, diaphoresis, fever, malaise, weakness, other HEENT: Denies: no symptoms, eye pain, blurred vision, tearing, double vision, ear pain, ear discharge, nose pain, nose congestion, throat pain, throat swelling, mouth pain, mouth swelling, other Cardiovascular: Denies: no symptoms, chest pain, edema, irregular heart rate, lightheadedness, palpitations, syncope, other Respiratory: Denies: no symptoms, cough, orthopnea, shortness of breath, SOB with excertion, SOB at rest, sputum, stridor, wheezing, other Gastrointestinal/Abdominal: Denies: no symptoms, abdomen distended, abdominal pain, black stools, tarry stools, blood in stool, constipated, diarrhea, difficulty swallowing, nausea, poor appetite, poor fluid intake, rectal bleeding, vomiting, other Genitourinary: Denies: no symptoms, burning, discharge, frequency, flank pain, hematuria, incontinence, pain, urgency, other Neurologic/Psychiatric: Denies: no symptoms, anxiety, depressed, emotional problems, headache, numbness, paresthesia, pre-existing deficit, seizure, tingling, tremors, weakness, other Endocrine: Denies: no symptoms, excessive sweating, flushing, intolerance to cold, intolerance to heat, increased hunger, increased thirst, increased urine, unexplained weight gain, unexplained weight loss, other Hematologic/Lymphatic: Denies: no symptoms, anemia, easy bleeding, easy bruising, other Allergies: Coded Allergies: No Known Allergies (Unverified , 05/25/20) Subjective No acute events Awaiting placement at [facility] Subjectively feeling well Objective Last 24 Hour Vital Signs Date Time Temp Pulse Resp B/P (MAP) Pulse Ox O2 Delivery O2 Flow Rate FiO2 08/27/20 16:00 98.6 78 17 131/81 (98) 94 08/27/20 12:00 98.2 78 17 136/79 (98) 94 08/27/20 09:00 Room Air 08/27/20 08:00 98.2 79 17 136/60 (85) 97 08/27/20 04:00 98.3 79 17 107/66 (80) 95 08/27/20 00:00 97.5 80 18 122/79 (93) 93 08/26/20 21:00 Room Air 08/26/20 20:00 97.9 75 18 121/71 (88) 93 Intake and Output 08/26/20 08/27/20 18:59 06:59 Intake Total 720 ml 400 ml Output Total 1150 ml 1300 ml Balance -430 ml -900 ml Intake Oral 720 ml Other 400 ml Output Urine Total 1150 ml 1300 ml Height (Feet): 6 Height (Inches): 1.00 Weight (Pounds): 216 General Appearance: no apparent distress, alert EENT: PERRL/EOMI Neck: supple Cardiovascular: normal rate, regular rhythm Respiratory/Chest: lungs clear Abdomen: normal bowel sounds, non tender Extremities: other - paraplegic 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 grossly normal, alert Skin: warm/dry Assessment/Plan Status: stable Assessment/Plan: #Acute hypoxemic respiratory failure 2' Covid19 - resolved #Concern for CAP - CXR concerning for pna with infiltrates - S/p Ceftriaxone and Azithromycin - Continued on Augementin (08/25 - 09/01) - Decadron 08/21 - 08/30 - no indication for remdesivir at this time - Appreciate recommendations from ID - Awaiting placement at SNF, Stable for discharge # hx right ankle osteomyelitis - S/p treatment 6 weeks iv vancomycin and cefepime #HLD - statin #Hx of Glaucoma - Eye drops ordered Lovenox (Patient is refusing) Awaiting SNF placement Full Code Time spent is 33 minutes with 16 minutes with counseling and care coordination. D/w consultants and cutter wet machine. Time of note different from time of encounter Valerie Lundberg M.D. Aug 27, 2020 18:24
--- NOTE | 2020-08-27 19:28 | NUR ---
NURSE HAND-OFF: Important Events on Shift:[monitoring vital signs, discharge tonight to [facility]] Patient Status: [stable] Diet: [regular] Pending Orders: [] Pending Results/Labs:[] Pending MD notification:[] Latest Vital Signs: Temperature 98.6 , Pulse 78 , B/P 131 /81 , Respiratory Rate 17 , O2 SAT 94 , Room Air, O2 Flow Rate . Vital Sign Comment: [] Latest Liu Fall Score: 35 Fall Risk: Medium Risk Safety Measures: Call light Within Reach, Bed Alarm Zone 1, Side Rails Side Rails x3, Bed position Low and Locked. Fall Precautions: Door Sign Patient Fall Education Report given to [JOYA Webber].
--- NOTE | 2020-08-27 19:30 | NUR ---
NURSE NOTES: Patient will be discharged to [facility], refused wound picture taking and to be cleaned or touched, pt stated that he will be leaving without a gown on. Pt denied any missing belongings and refused to sign DC paper works as witnessed by charge nurse. Report given to JOYA Bass. Endorsed to next shift.
--- NOTE | 2020-08-27 20:23 | NUR ---
NURSE NOTES: Patient in bed, awake, alert and able to make needs known. Patient is being discharged to [facility] room 15.A. Report given. [facility] at bedside. All belongings at bedside. Refuses to gown up or be changed. Patient alert x4. Packet given.
[2020-08-27] MEDS ORDERED: Latanoprost 0.005% Opth 2.5ml Soln BOTH EYES SCH (21:00)
== END 2020-08-27 20:45 | DRG 177 ==
LOC: EDBD 22:38 → EDUNIT# 22:38 → EMR 22:46 → 4E 23:02 → EDBEDREQ 08-21 00:48
DX: U07.1 COVID-19 (principal); J12.89 Other viral pneumonia; J96.01 Acute respiratory failure with hypoxia; G82.20 Paraplegia, unspecified; L03.90 Cellulitis, unspecified; M86.9 Osteomyelitis, unspecified; L97.312 Non-pressure chronic ulcer of right ankle with fat layer exposed; E78.5 Hyperlipidemia, unspecified; V89.2XXS Person injured in unspecified motor-vehicle accident, traffic, sequela; F17.200 Nicotine dependence, unspecified, uncomplicated; H40.9 Unspecified glaucoma; K59.00 Constipation, unspecified
CPT/HCPCS: 36415; 71045; 80048; 80053; 82550; 82728; 83605; 83615; 83690; 83735; 83880; 84100; 84484; 85025; 85610; 85651; 85730; 86140; 86710; 87040; 87081; 96365; 96367; 96375; 99285